=== PATIENT | male | born 1990 | race African-American/Black ===

== ENCOUNTER 2016-05-01 10:30 | Emergency (ER) | payer MEDICAID ==
[~2016-05-01] VITALS: Ht 170.2 cm; Wt 63.5 kg
[~2016-05-01 10:30] MED LIST: LEVE500T22 PO
[2016-05-01 11:24] LABS: Albumin 4.3 g/dL (3.4-5.0); Alkaline Phosphatase 57 U/L (45-117); Anion Gap 7 (5-15); Aspartate Aminotransferase 13 U/L (15-37); BUN/Creatinine Ratio 6.7; Basophils # (auto) 0 uL; Basophils % (auto) 0.8 % (0.0-2.0); Bilirubin, Total 0.4 mg/dL (0.2-1.0); Blood Urea Nitrogen 6 mg/dL (7-18); Calcium 8.8 mg/dL (8.5-10.1); Carbon Dioxide 28 mmol/L (21-32); Chloride 106 mmol/L (98-107); Eosinophils # (auto) 0 uL; Eosinophils % (auto) 0.8 % (0.0-7.0); GFR African American 134 mL/min; GFR Non-African American 111 mL/min; Glucose 99 mg/dL (74-106); Hematocrit 51.5 % (41.0-53.0); Hemoglobin 16.2 g/dL (13.5-17.5); Lymphocytes # (auto) 1.8 uL; Magnesium 2.1 mg/dL (1.6-2.6); Mean Corpuscular Hgb Conc. 31.5 g/dL (32.0-36.0); Mean Corpuscular Volume 94.9 fL (80.0-100.0); Mean Platelet Volume 8.5 fL (7.4-10.4); Monocytes # (auto) 0.3 uL; Neutrophils # (auto) 3.4 uL; Neutrophils % (auto) 61.4 % (37.0-80.0); Platelet Count (auto) 195 10^3/uL (140-450); Potassium 4.4 mmol/L (3.5-5.1); Red Cell Distribution Width 12.5 % (11.6-16.0); Sodium 141 mmol/L (136-145); Total Protein 7.4 g/dL (6.4-8.2); White Blood Cell 5.6 10^3/uL (4.4-10.8)
[2016-05-01 12:35] VITALS: BP 135/85
[2016-05-01] MEDS ORDERED: HYDROmorphone HCL 2 MG/ML VL IM ONE (13:00)
[2016-05-01] MEDS ORDERED: ONDANSETRON HCL 4 MG/2 ML VIAL IM ONE (13:00)
== END 2016-05-01 14:04 | disposition home or self-care (01) ==
LOC: ER 10:34
DX: R07.89 Other chest pain (principal); F41.9 Anxiety disorder, unspecified; J45.909 Unspecified asthma, uncomplicated; F17.210 Nicotine dependence, cigarettes, uncomplicated; F12.10 Cannabis abuse, uncomplicated; I25.10 Atherosclerotic heart disease of native coronary artery without angina pectoris; Z96.89 Presence of other specified functional implants; Z88.6 Allergy status to analgesic agent; Z91.041 Radiographic dye allergy status; Z91.013 Allergy to seafood; Z91.09 Other allergy status, other than to drugs and biological substances
CPT/HCPCS: 36415; 80053; 83735; 84484; 85025; 93005; 96372; 99285; J1170; J2405

== ENCOUNTER 2016-10-02 20:21 | Emergency (ER) | payer MEDICAID ==
[~2016-10-02] VITALS: Ht 170.2 cm; Wt 67.2 kg
[2016-10-02 21:23] LABS: Basophils # (auto) 0 uL; Basophils % (auto) 0.7 % (0.0-2.0); CONDITION Y; Eosinophils # (auto) 0.1 uL; Eosinophils % (auto) 2.1 % (0.0-7.0); Hematocrit 48.2 % (41.0-53.0); Hemoglobin 16.5 g/dL (13.5-17.5); Lymphocytes # (auto) 1.5 uL; Lymphocytes % (auto) 35.2 % (10.0-50.0); Mean Corpuscular Hemoglobin 31.9 pg (28.0-32.0); Mean Corpuscular Hgb Conc. 34.2 g/dL (32.0-36.0); Mean Corpuscular Volume 93.3 fL (80.0-100.0); Mean Platelet Volume 8.1 fL (7.4-10.4); Monocytes # (auto) 0.4 uL; Monocytes % (auto) 10.1 % (0.0-12.0); Neutrophils # (auto) 2.2 uL; Neutrophils % (auto) 51.9 % (37.0-80.0); Platelet Count (auto) 153 10^3/uL (140-450); Red Cell Distribution Width 12.5 % (11.6-16.0); White Blood Cell 4.3 10^3/uL (4.4-10.8)
[2016-10-02 21:43] LABS: Albumin 4.1 g/dL (3.4-5.0); Anion Gap 9 (5-15); Aspartate Aminotransferase 16 U/L (15-37); BUN/Creatinine Ratio 17.1; Blood Urea Nitrogen 14 mg/dL (7-18); Calcium 8.5 mg/dL (8.5-10.1); Carbon Dioxide 23 mmol/L (21-32); Chloride 110 mmol/L (98-107); GFR African American 146 mL/min; GFR Non-African American 121 mL/min; Glucose 84 mg/dL (74-106); Sodium 142 mmol/L (136-145)
[2016-10-02 21:54] LABS: Alkaline Phosphatase 72 U/L (45-117); Bilirubin, Total 0.5 mg/dL (0.2-1.0); Total Protein 7.6 g/dL (6.4-8.2)
[2016-10-02 21:56] LABS: Urine Bilirubin Negative (Negative); Urine Blood Negative /uL (Negative); Urine Color Yellow (Yellow); Urine Glucose Normal (Normal); Urine Ketone Negative (Negative); Urine Nitrite Negative (Negative); Urine RBC <1 /hpf (0 - 3); Urine Urobilinogen Normal (Negative); Urine pH 6.5 (5.0-8.0)
[2016-10-03] MEDS ORDERED: ONDANSETRON HCL 4 MG/2 ML VIAL IV ONE (00:30)
[2016-10-03] MEDS ORDERED: NALBUPHINE HCL 10 MG/1ml INJECTION IV ONE (00:30)
[2016-10-03] MEDS ORDERED: SODIUM CHLORIDE 0.9% 1,000 ML IV ONE (00:30)
[2016-10-03 00:33] VITALS: BP 160/94
[2016-10-03] MEDS ORDERED: diphenhdrAMINE HCL 50 MG/1 ML VL ONE (00:37)
[2016-10-03] MEDS ORDERED: diphenhdrAMINE HCL 50 MG/1 ML VL IV ONE (00:45)
== END 2016-10-03 03:05 | disposition home or self-care (01) ==
LOC: ER 20:23
DX: K52.9 Noninfective gastroenteritis and colitis, unspecified (principal); K59.00 Constipation, unspecified; J45.909 Unspecified asthma, uncomplicated; I25.10 Atherosclerotic heart disease of native coronary artery without angina pectoris; Z95.0 Presence of cardiac pacemaker; Z91.013 Allergy to seafood; Z91.041 Radiographic dye allergy status; Z88.8 Allergy status to other drugs, medicaments and biological substances; F17.210 Nicotine dependence, cigarettes, uncomplicated; F12.10 Cannabis abuse, uncomplicated; Z59.0 Homelessness
CPT/HCPCS: 36415; 71020; 74176; 80053; 80307; 81001; 83690; 83735; 84484; 85025; 93005; 94761; 96361; 96374; 96375; 99285; J1200; J2300; J2405

== ENCOUNTER 2017-01-19 10:11 | Emergency (ER) | payer MEDICAID, OTHER ==
[~2017-01-19] VITALS: Ht 167.6 cm; Wt 63.5 kg
[2017-01-19 11:43] LABS: Basophils # (auto) 0.1 uL; Basophils % (auto) 1.3 % (0.0-2.0); Eosinophils # (auto) 0.1 uL; Eosinophils % (auto) 1.7 % (0.0-7.0); Hematocrit 41.1 % (41.0-53.0); Hemoglobin 14.1 g/dL (13.5-17.5); Lymphocytes # (auto) 2.3 uL; Lymphocytes % (auto) 41.5 % (10.0-50.0); Mean Corpuscular Hemoglobin 31.9 pg (28.0-32.0); Mean Corpuscular Hgb Conc. 34.4 g/dL (32.0-36.0); Mean Corpuscular Volume 92.8 fL (80.0-100.0); Monocytes # (auto) 0.3 uL; Monocytes % (auto) 4.7 % (0.0-12.0); Neutrophils # (auto) 2.9 uL; Neutrophils % (auto) 50.8 % (37.0-80.0); Nucleated Red Blood Cells % 0.4 %; Platelet Count (auto) 169 10^3/uL (140-450); Red Blood Cells 4.43 10^6/uL (4.5-5.90); Red Cell Distribution Width 12.6 % (11.8-14.3); White Blood Cell 5.6 10^3/uL (4.4-10.8)
[2017-01-19 11:58] LABS: Alanine Aminotransferase 34 U/L (16-61); Albumin 3.9 g/dL (3.4-5.0); Alkaline Phosphatase 57 U/L (45-117); Amylase 76 U/L (25-115); Anion Gap 7 (5-15); Aspartate Aminotransferase 17 U/L (15-37); BUN/Creatinine Ratio 13.9; Bilirubin, Total 0.6 mg/dL (0.2-1.0); Blood Urea Nitrogen 10 mg/dL (7-18); Calcium 8.3 mg/dL (8.5-10.1); Carbon Dioxide 25 mmol/L (21-32); Chloride 111 mmol/L (98-107); GFR African American 170 mL/min; GFR Non-African American 140 mL/min; Glucose 84 mg/dL (74-106); Magnesium 2.2 mg/dL (1.6-2.6); Potassium 3.5 mmol/L (3.5-5.1); Sodium 143 mmol/L (136-145); Total Protein 6.8 g/dL (6.4-8.2)
[2017-01-19] MEDS ORDERED: SODIUM CHLORIDE 0.9% 500 ML IVB ONE (13:25)
[2017-01-19] MEDS ORDERED: ONDANSETRON HCL 4 MG/2 ML VIAL IV ONE (14:00)
[2017-01-19] MEDS ORDERED: HYDROmorphone HCL 2 MG/ML VL IV ONE (14:00)
[2017-01-19 14:14] VITALS: BP 114/52
== END 2017-01-19 14:58 | disposition home or self-care (01) ==
LOC: ER 10:11
DX: K92.1 Melena (principal); R11.2 Nausea with vomiting, unspecified; F17.210 Nicotine dependence, cigarettes, uncomplicated; J45.909 Unspecified asthma, uncomplicated; I25.10 Atherosclerotic heart disease of native coronary artery without angina pectoris; Z59.0 Homelessness; Z86.73 Personal history of transient ischemic attack (TIA), and cerebral infarction without residual deficits; Z87.11 Personal history of peptic ulcer disease
CPT/HCPCS: 36415; 74176; 80053; 82150; 83690; 83735; 84484; 85025; 94761; 96361; 96374; 96375; 99285; J1170; J2405; J7040

== ENCOUNTER 2017-01-22 17:34 | Emergency (ER) | payer OTHER ==
[~2017-01-22] VITALS: Ht 167.6 cm; Wt 59.0 kg
[2017-01-22 17:54] VITALS: BP 100/70
== END 2017-01-23 05:00 | disposition left against medical advice (07) ==
LOC: ER 17:44
DX: R11.2 Nausea with vomiting, unspecified (principal); Z53.21 Procedure and treatment not carried out due to patient leaving prior to being seen by health care provider

== ENCOUNTER 2017-02-07 00:17 | Inpatient (IN) | payer OTHER ==
[~2017-02-07] VITALS: Ht 167.6 cm; Wt 58.5 kg
[2017-02-07 00:54] LABS: Basophils # (auto) 0.1 uL; Basophils % (auto) 1.3 % (0.0-2.0); Eosinophils # (auto) 0.2 uL; Eosinophils % (auto) 2.3 % (0.0-7.0); Lymphocytes # (auto) 2.8 uL; Lymphocytes % (auto) 28.8 % (10.0-50.0); Mean Corpuscular Hemoglobin 31.3 pg (28.0-32.0); Mean Corpuscular Hgb Conc. 33.3 g/dL (32.0-36.0); Monocytes # (auto) 0.4 uL; Monocytes % (auto) 3.9 % (0.0-12.0); Neutrophils # (auto) 6.2 uL; Neutrophils % (auto) 63.7 % (37.0-80.0); Nucleated Red Blood Cells % 0.1 %; Platelet Count (auto) 162 10^3/uL (140-450); Red Cell Distribution Width 13.1 % (11.8-14.3); White Blood Cell 9.7 10^3/uL (4.4-10.8)
[2017-02-07 01:09] LABS: INR 1.07 (0.9-1.15); Partial Thromboplastin Time 26.4 sec (22.64-33.71); Prothrombin Time 11.7 sec (9.37-12.3)
[2017-02-07 01:14] LABS: Albumin 3.9 g/dL (3.4-5.0); Anion Gap 8 (5-15); Aspartate Aminotransferase 18 U/L (15-37); BUN/Creatinine Ratio 17.2; Blood Urea Nitrogen 20 mg/dL (7-18); Calcium 8.7 mg/dL (8.5-10.1); Carbon Dioxide 23 mmol/L (21-32); Chloride 109 mmol/L (98-107); GFR African American 98 mL/min; GFR Non-African American 81 mL/min; Glucose 92 mg/dL (74-106); Magnesium 2.2 mg/dL (1.6-2.6); Potassium 3.9 mmol/L (3.5-5.1); Sodium 140 mmol/L (136-145)
[2017-02-07 01:18] LABS: Alkaline Phosphatase 70 U/L (45-117); Bilirubin, Total 0.2 mg/dL (0.2-1.0); Total Protein 7.6 g/dL (6.4-8.2)
[2017-02-07] MEDS ORDERED: MORPHINE SULF INJ 2 MG/ML SYRINGE 1ML IV ONE (06:45)
[2017-02-07] MEDS ORDERED: SODIUM CHLORIDE 0.9% 1,000 ML IV ONE (06:45)
[2017-02-07] MEDS ORDERED: PROMETHAZINE HCL 25 MG/ML 1ML IV ONE (06:45)
[2017-02-07] MEDS ORDERED: ASPirin 81 mg TAB PO ONE (06:45)
[2017-02-07] MEDS ORDERED: ONDANSETRON HCL 4 MG/2 ML VIAL IV ONE (06:45)
[2017-02-07] MEDS ORDERED: ONDANSETRON HCL 4 MG/2 ML VIAL IV PRN (08:00)
[2017-02-07] MEDS ORDERED: ACETAMINOPHEN 325 MG TAB PO PRN (08:00)
[2017-02-07] MEDS ORDERED: HYDROcodone-ACET 5/325MG TAB PO PRN (08:00)
[2017-02-07] MEDS ORDERED: TEMAZEPAM 15 MG CAP PO PRN (08:00)
[2017-02-07] MEDS ORDERED: NITROGLYCERIN 0.4 MG SL TAB SL PRN (08:00)
[2017-02-07] MEDS ORDERED: MORPHINE SULF INJ 2 MG/ML SYRINGE 1ML IV PRN (08:00)
[2017-02-07 09:51] VITALS: BP 105/48
[2017-02-07] MEDS ORDERED: FAMOTIDINE 20 MG TAB PO SCH (10:00)
[2017-02-07] MEDS ORDERED: ENOXAPARIN SOD 40 MG/0.4 ML SYRINGE SC SCH (10:00)
[2017-02-07] MEDS ORDERED: LEVETIRACETAM 500 MG TAB PO SCH (10:00)
[2017-02-07] MEDS ORDERED: ASPirin 81 mg TAB PO SCH (10:00)
[2017-02-07 12:18] VITALS: BP 105/48
[2017-02-07 13:52] VITALS: BP 115/50
[2017-02-07 14:07] VITALS: BP 115/50
[2017-02-07 14:12] VITALS: BP 115/50
[2017-02-07] MEDS ORDERED: ATORVASTATIN 20 MG TAB PO SCH (22:00)
== END 2017-02-07 14:07 | disposition home or self-care (01) | DRG 198 ==
LOC: ER 00:20 → TELE 00:21 → TELE-WESTW 09:14
PROVIDERS: ADMIT Nurse Practitioner; ATTEND Nurse Practitioner
DX: R07.89 Other chest pain (principal); I25.10 Atherosclerotic heart disease of native coronary artery without angina pectoris; F11.20 Opioid dependence, uncomplicated; R56.9 Unspecified convulsions; E78.00 Pure hypercholesterolemia, unspecified; F12.90 Cannabis use, unspecified, uncomplicated; F17.210 Nicotine dependence, cigarettes, uncomplicated; F20.9 Schizophrenia, unspecified; J44.9 Chronic obstructive pulmonary disease, unspecified; F41.9 Anxiety disorder, unspecified; F32.9 Major depressive disorder, single episode, unspecified; I69.354 Hemiplegia and hemiparesis following cerebral infarction affecting left non-dominant side; Z95.0 Presence of cardiac pacemaker; Z59.0 Homelessness; Z82.3 Family history of stroke; Z82.49 Family history of ischemic heart disease and other diseases of the circulatory system; Z87.11 Personal history of peptic ulcer disease; Z80.0 Family history of malignant neoplasm of digestive organs; Z88.8 Allergy status to other drugs, medicaments and biological substances
CPT/HCPCS: 36415; 71010; 80053; 83735; 84484; 85025; 85610; 85730; 93306; 96361; 96374; 96375; 99291; J2405

== ENCOUNTER 2017-04-01 14:56 | Emergency (ER) | payer OTHER ==
[~2017-04-01] VITALS: Ht 170.2 cm; Wt 65.3 kg
[2017-04-01 15:57] LABS: Urine Bacteria NONE SEEN /hpf (None Seen); Urine Blood Negative /uL (Negative); Urine Mucus FEW (None Seen); Urine Specific Gravity 1.022 (1.001-1.035); Urine WBC <1 /hpf (0 - 3)
[2017-04-01 16:19] LABS: Alcohol, Urine < 3.0 mg/dL (0-5); Amphetamine Screen, Urine NEGATIVE (NEGATIVE); Barbiturate Scree,Urine NEGATIVE (NEGATIVE); Benzodiazephine Screen, Urine NEGATIVE (NEGATIVE); Cannabinoid Screen, Urine POSITIVE (NEGATIVE); Cocaine Screen, Urine NEGATIVE (NEGATIVE); Opiate Scree,Urine NEGATIVE (NEGATIVE); Phencyclidine Screen, Urine NEGATIVE (NEGATIVE)
[2017-04-01 16:29] LABS: Basophils # (auto) 0.1 uL; Basophils % (auto) 1.2 % (0.0-2.0); Eosinophils # (auto) 0.2 uL; Eosinophils % (auto) 3.7 % (0.0-7.0); Hematocrit 45.9 % (41.0-53.0); Hemoglobin 15.4 g/dL (13.5-17.5); Lymphocytes # (auto) 1.8 uL; Lymphocytes % (auto) 37.8 % (10.0-50.0); Mean Corpuscular Hemoglobin 31.6 pg (28.0-32.0); Mean Corpuscular Hgb Conc. 33.5 g/dL (32.0-36.0); Mean Corpuscular Volume 94.3 fL (80.0-100.0); Monocytes # (auto) 0.3 uL; Monocytes % (auto) 5.6 % (0.0-12.0); Neutrophils # (auto) 2.4 uL; Neutrophils % (auto) 51.7 % (37.0-80.0); Platelet Count (auto) 184 10^3/uL (140-450); Red Blood Cells 4.87 10^6/uL (4.5-5.90); White Blood Cell 4.7 10^3/uL (4.4-10.8)
[2017-04-01 16:35] LABS: Alanine Aminotransferase 20 U/L (16-61); Albumin 3.9 g/dL (3.4-5.0); Anion Gap 7 (5-15); Aspartate Aminotransferase 18 U/L (15-37); BUN/Creatinine Ratio 18.4; Blood Urea Nitrogen 16 mg/dL (7-18); Calcium 8.3 mg/dL (8.5-10.1); Carbon Dioxide 25 mmol/L (21-32); Chloride 105 mmol/L (98-107); GFR African American 136 mL/min; GFR Non-African American 113 mL/min; Glucose 132 mg/dL (74-106); Sodium 137 mmol/L (136-145)
[2017-04-01 16:40] LABS: Alkaline Phosphatase 65 U/L (45-117); Bilirubin, Total 0.3 mg/dL (0.2-1.0); Total Protein 7.1 g/dL (6.4-8.2)
[2017-04-02 00:15] VITALS: BP 122/81
== END 2017-04-02 06:16 | disposition home or self-care (01) ==
LOC: ER 14:56
DX: F12.10 Cannabis abuse, uncomplicated (principal); J45.909 Unspecified asthma, uncomplicated; I25.10 Atherosclerotic heart disease of native coronary artery without angina pectoris; F17.210 Nicotine dependence, cigarettes, uncomplicated; Z88.6 Allergy status to analgesic agent; Z91.041 Radiographic dye allergy status
CPT/HCPCS: 36415; 71046; 80053; 80307; 81001; 84484; 85025; 93005

== ENCOUNTER 2017-05-30 21:38 | Emergency (ER) | payer MEDICAID, OTHER ==
[~2017-05-30] VITALS: Ht 170.2 cm; Wt 68.0 kg
[2017-05-30 22:08] LABS: Basophils # (auto) 0.1 uL; Basophils % (auto) 0.7 % (0.0-2.0); Eosinophils # (auto) 0.2 uL; Hematocrit 48.5 % (41.0-53.0); Hemoglobin 16.2 g/dL (13.5-17.5); Lymphocytes # (auto) 3.4 uL; Lymphocytes % (auto) 35.3 % (10.0-50.0); Mean Corpuscular Hemoglobin 31.7 pg (28.0-32.0); Mean Corpuscular Hgb Conc. 33.5 g/dL (32.0-36.0); Mean Corpuscular Volume 94.6 fL (80.0-100.0); Monocytes # (auto) 0.6 uL; Monocytes % (auto) 6.4 % (0.0-12.0); Neutrophils # (auto) 5.3 uL; Neutrophils % (auto) 55.6 % (37.0-80.0); Nucleated Red Blood Cells % 0.2 %; Platelet Count (auto) 190 10^3/uL (140-450); Red Blood Cells 5.13 10^6/uL (4.5-5.90); Red Cell Distribution Width 12.7 % (11.8-14.3); White Blood Cell 9.6 10^3/uL (4.4-10.8)
[2017-05-30 22:22] LABS: BUN/Creatinine Ratio 13.3; Calcium 8.7 mg/dL (8.5-10.1); Potassium 4.1 mmol/L (3.5-5.1)
[2017-05-30 22:25] LABS: Bilirubin, Total 0.4 mg/dL (0.2-1.0); INR 1.05 (0.9-1.15); Partial Thromboplastin Time 27.9 sec (22.64-33.71); Prothrombin Time 11.5 sec (9.37-12.3); Total Protein 7.3 g/dL (6.4-8.2)
[2017-05-31 05:50] VITALS: BP 122/43
[2017-05-31] MEDS ORDERED: SODIUM CHLORIDE 0.9% 1,000 ML IV ONE (07:36)
[2017-05-31] MEDS ORDERED: ONDANSETRON HCL 4 MG/2 ML VIAL IV ONE (07:45)
[2017-05-31] MEDS ORDERED: NALBUPHINE HCL 10 MG/1ml INJECTION IV ONE (08:00)
== END 2017-05-31 10:12 | disposition home or self-care (01) ==
LOC: ER 21:38
DX: K29.70 Gastritis, unspecified, without bleeding (principal); F17.210 Nicotine dependence, cigarettes, uncomplicated; Z88.6 Allergy status to analgesic agent; Z91.041 Radiographic dye allergy status; Z91.013 Allergy to seafood; Z91.09 Other allergy status, other than to drugs and biological substances; Z98.890 Other specified postprocedural states
CPT/HCPCS: 36415; 74176; 80053; 82150; 83690; 85025; 85610; 85730; 96361; 96374; 96375; 99285; J2300; J2405; J7030

== ENCOUNTER 2017-07-04 20:34 | Emergency (ER) | payer OTHER, MEDICAID ==
[~2017-07-04] VITALS: Ht 170.2 cm; Wt 59.0 kg
[2017-07-04 20:54] VITALS: BP 112/84
[2017-07-04 22:04] LABS: Basophils # (auto) 0.1 uL; Basophils % (auto) 1.9 % (0.0-2.0); Eosinophils # (auto) 0.2 uL; Eosinophils % (auto) 2.8 % (0.0-7.0); Hematocrit 43.7 % (41.0-53.0); Hemoglobin 14.5 g/dL (13.5-17.5); Lymphocytes # (auto) 3.3 uL; Lymphocytes % (auto) 49.7 % (10.0-50.0); Mean Corpuscular Hgb Conc. 33.1 g/dL (32.0-36.0); Mean Corpuscular Volume 93.5 fL (80.0-100.0); Monocytes # (auto) 0.3 uL; Monocytes % (auto) 4.9 % (0.0-12.0); Neutrophils # (auto) 2.7 uL; Neutrophils % (auto) 40.7 % (37.0-80.0); Nucleated Red Blood Cells % 0.1 %; Platelet Count (auto) 165 10^3/uL (140-450); Red Blood Cells 4.68 10^6/uL (4.5-5.90); Red Cell Distribution Width 13.3 % (11.8-14.3); White Blood Cell 6.7 10^3/uL (4.4-10.8)
[2017-07-04 22:21] LABS: Alanine Aminotransferase 32 U/L (16-61); Albumin 3.7 g/dL (3.4-5.0); Amylase 105 U/L (25-115); Anion Gap 9 (5-15); Aspartate Aminotransferase 27 U/L (15-37); BUN/Creatinine Ratio 23.8; Blood Urea Nitrogen 19 mg/dL (7-18); Calcium 8.3 mg/dL (8.5-10.1); Carbon Dioxide 25 mmol/L (21-32); Chloride 108 mmol/L (98-107); GFR African American 149 mL/min; GFR Non-African American 123 mL/min; Glucose 86 mg/dL (74-106); Lipase 436 U/L (73-393); Sodium 142 mmol/L (136-145)
[2017-07-04 22:27] LABS: INR 1.05 (0.9-1.15); Partial Thromboplastin Time 27.3 sec (22.64-33.71); Prothrombin Time 11.4 sec (9.37-12.3)
[2017-07-04 22:33] LABS: Alkaline Phosphatase 91 U/L (45-117); Bilirubin, Total 0.2 mg/dL (0.2-1.0); Total Protein 6.7 g/dL (6.4-8.2)
== END 2017-07-04 23:18 | disposition left against medical advice (07) ==
LOC: ER 20:34
DX: R10.30 Lower abdominal pain, unspecified (principal); R11.2 Nausea with vomiting, unspecified; Z53.21 Procedure and treatment not carried out due to patient leaving prior to being seen by health care provider
CPT/HCPCS: 36415; 74176; 80053; 82150; 83690; 84484; 85025; 85610; 85730

== ENCOUNTER 2017-10-28 11:29 | Inpatient (IN) | payer MEDICAID, OTHER ==
[~2017-10-28] VITALS: Ht 170.2 cm; Wt 73.0 kg
[2017-10-28] MEDS ORDERED: ONDANSETRON HCL 4 MG/2 ML VIAL IV ONE (11:45)
[2017-10-28] MEDS ORDERED: MORPHINE SULF INJ 2 MG/ML SYRINGE 1ML IV ONE (11:45)
[2017-10-28] MEDS ORDERED: ASPirin 81 mg TAB PO ONE (11:45)
[2017-10-28 12:30] LABS: Basophils # (auto) 0.1 uL; Basophils % (auto) 0.6 % (0.0-2.0); Eosinophils # (auto) 0 uL; Eosinophils % (auto) 0.2 % (0.0-7.0); Hematocrit 46.4 % (41.0-53.0); Hemoglobin 15.4 g/dL (13.5-17.5); Lymphocytes # (auto) 2.4 uL; Lymphocytes % (auto) 26.3 % (10.0-50.0); Mean Corpuscular Hemoglobin 31.7 pg (28.0-32.0); Mean Corpuscular Hgb Conc. 33.1 g/dL (32.0-36.0); Mean Corpuscular Volume 95.6 fL (80.0-100.0); Monocytes # (auto) 0.9 uL; Monocytes % (auto) 10.2 % (0.0-12.0); Neutrophils # (auto) 5.8 uL; Neutrophils % (auto) 62.7 % (37.0-80.0); Platelet Count (auto) 116 10^3/uL (140-450); Red Blood Cells 4.86 10^6/uL (4.5-5.90); Red Cell Distribution Width 12.7 % (11.8-14.3); White Blood Cell 9.2 10^3/uL (4.4-10.8)
[2017-10-28 12:43] LABS: INR 1.05 (0.9-1.15); Partial Thromboplastin Time 27.9 sec (23.78-33.04); Prothrombin Time 11.2 sec (9.27-12.13)
[2017-10-28 13:27] LABS: Albumin 3.9 g/dL (3.4-5.0); Anion Gap 11 (5-15); BUN/Creatinine Ratio 9.1; Blood Urea Nitrogen 7 mg/dL (7-18); Calcium 8.8 mg/dL (8.5-10.1); Carbon Dioxide 25 mmol/L (21-32); Chloride 103 mmol/L (98-107); GFR African American 156 mL/min; GFR Non-African American 129 mL/min; Glucose 85 mg/dL (74-106); Magnesium 1.9 mg/dL (1.6-2.6); Potassium 3.9 mmol/L (3.5-5.1); Sodium 139 mmol/L (136-145)
[2017-10-28 13:32] LABS: Alanine Aminotransferase 23 U/L (16-61); Alkaline Phosphatase 64 U/L (45-117); Aspartate Aminotransferase 24 U/L (15-37); Bilirubin, Total 0.8 mg/dL (0.2-1.0); Total Protein 7.7 g/dL (6.4-8.2)
[2017-10-28] MEDS ORDERED: ACETAMINOPHEN 500 MG TAB PO PRN (14:00)
[2017-10-28] MEDS ORDERED: TEMAZEPAM 15 MG CAP PO PRN (14:00)
[2017-10-28] MEDS ORDERED: LACTULOSE 20Gm/30ML SOLN PO PRN (14:00)
[2017-10-28] MEDS ORDERED: PROMETHAZINE HCL 25 MG/ML 1ML IV PRN (14:00)
[2017-10-28] MEDS: SODIUM CHLORIDE 0.9% 1,000 ML IV SCH (15:21)
[2017-10-28] MEDS: LORazepam 0.5 MG TAB PO PRN (17:38)
[2017-10-28] MEDS: traMADol HCL 50 MG TAB PO PRN (19:36)
[2017-10-28] MEDS: LEVETIRACETAM 500 MG TAB PO SCH (20:48)
[2017-10-28 20:54] LABS: Urine Bacteria FEW /hpf (None Seen); Urine Blood 3+ /uL (Negative); Urine Mucus FEW (None Seen); Urine Specific Gravity 1.026 (1.001-1.035); Urine WBC 3 /hpf (0 - 3)
[2017-10-28 21:11] LABS: Alcohol, Urine < 3.0 mg/dL (0-5); Amphetamine Screen, Urine NEGATIVE (NEGATIVE); Barbiturate Scree,Urine NEGATIVE (NEGATIVE); Benzodiazephine Screen, Urine NEGATIVE (NEGATIVE); Cannabinoid Screen, Urine POSITIVE (NEGATIVE); Cocaine Screen, Urine NEGATIVE (NEGATIVE); Opiate Scree,Urine POSITIVE (NEGATIVE); Phencyclidine Screen, Urine NEGATIVE (NEGATIVE)
[2017-10-28] MEDS: METOPROLOL TARTRATE 25 MG TAB PO SCH ×2 (22:00→22:04)
[2017-10-28] MEDS ORDERED: ATORVASTATIN 20 MG TAB PO SCH (22:00)
[2017-10-28 22:32] VITALS: BP 123/65
[2017-10-28 22:44] VITALS: BP 123/65
[2017-10-29] MEDS ORDERED: DIVA500T53 PO (04:15)
[2017-10-29 05:00] VITALS: BP 92/48
[2017-10-29] MEDS: SODIUM CHLORIDE 0.9% 1,000 ML IV SCH (06:31)
[2017-10-29] MEDS: traMADol HCL 50 MG TAB PO PRN (06:54)
[2017-10-29 08:40] VITALS: BP 121/63
[2017-10-29 08:57] LABS: Cholesterol 113 mg/dL (< 200); HDL Cholesterol 52 mg/dL (40-59); LDL Cholesterol 55 mg/dL (< 100); Triglycerides 66 mg/dL (< 150)
[2017-10-29] MEDS ORDERED: PANTOPRAZOLE 40 MG TAB PO SCH (10:00)
[2017-10-29] MEDS ORDERED: NITROGLYCERIN 0.2MG/HR TOPICAL PATCH TD SCH (10:00)
[2017-10-29] MEDS: METOPROLOL TARTRATE 25 MG TAB PO SCH (10:00)
[2017-10-29] MEDS ORDERED: ENOXAPARIN SOD 40 MG/0.4 ML SYRINGE SC SCH (10:00)
[2017-10-29] MEDS ORDERED: ASPirin 81 mg TAB PO SCH (10:00)
[2017-10-29] MEDS: LORazepam 0.5 MG TAB PO PRN (10:25)
[2017-10-29] MEDS: LEVETIRACETAM 500 MG TAB PO SCH (10:26)
[2017-10-29] MEDS ORDERED: NICOTINE 21MG/24 HR TOPICAL PATCH TD ONE (11:00)
[2017-10-29 11:27] VITALS: BP 121/63
[2017-10-30] MEDS ORDERED: NICOTINE 21MG/24 HR TOPICAL PATCH TD SCH (10:00)
== END 2017-10-29 19:14 | disposition home or self-care (01) | DRG 198 ==
LOC: ER 11:29 → TELE 11:30 → TELE-CENTR 22:30
PROVIDERS: ADMIT Internal Medicine; ATTEND Internal Medicine
DX: I25.10 Atherosclerotic heart disease of native coronary artery without angina pectoris (principal); F11.20 Opioid dependence, uncomplicated; E78.5 Hyperlipidemia, unspecified; F17.210 Nicotine dependence, cigarettes, uncomplicated; F20.9 Schizophrenia, unspecified; G40.909 Epilepsy, unspecified, not intractable, without status epilepticus; F32.9 Major depressive disorder, single episode, unspecified; F41.9 Anxiety disorder, unspecified; Z82.3 Family history of stroke; Z82.49 Family history of ischemic heart disease and other diseases of the circulatory system; Z80.0 Family history of malignant neoplasm of digestive organs; Z86.73 Personal history of transient ischemic attack (TIA), and cerebral infarction without residual deficits; Z87.11 Personal history of peptic ulcer disease; Z91.041 Radiographic dye allergy status; Z88.5 Allergy status to narcotic agent; Z91.018 Allergy to other foods; Z91.013 Allergy to seafood; Z95.0 Presence of cardiac pacemaker
CPT/HCPCS: 36415; 71045; 80053; 80061; 80307; 81001; 81241; 82550; 83735; 84443; 84484; 85025; 85302; 85305; 85306; 85379; 85610; 85613; 85652; 85670; 85705; 85730; 85732; 86141; 87081; 93005; 94761; 96374; 96375; J2405

== ENCOUNTER 2018-01-13 19:30 | Emergency (ER) | payer OTHER ==
[~2018-01-13] VITALS: Ht 350.5 cm; Wt 65.8 kg
[~2018-01-13 19:30] MED LIST changes: +DIVA500T53 PO
[2018-01-13 20:06] LABS: Basophils # (auto) 0 uL; Basophils % (auto) 0.8 % (0.0-2.0); Eosinophils # (auto) 0.4 uL; Eosinophils % (auto) 7.7 % (0.0-7.0); Hemoglobin 14.7 g/dL (13.5-17.5); Lymphocytes # (auto) 2.5 uL; Lymphocytes % (auto) 44.7 % (10.0-50.0); Mean Corpuscular Hemoglobin 32.4 pg (28.0-32.0); Mean Corpuscular Hgb Conc. 33.5 g/dL (32.0-36.0); Mean Corpuscular Volume 96.9 fL (80.0-100.0); Monocytes # (auto) 0.4 uL; Monocytes % (auto) 8.1 % (0.0-12.0); Neutrophils # (auto) 2.1 uL; Neutrophils % (auto) 38.7 % (37.0-80.0); Nucleated Red Blood Cells % 0.1 %; Platelet Count (auto) 121 10^3/uL (140-450); Red Blood Cells 4.54 10^6/uL (4.5-5.90); Red Cell Distribution Width 13.9 % (11.8-14.3); White Blood Cell 5.5 10^3/uL (4.4-10.8)
[2018-01-13 20:24] LABS: Alanine Aminotransferase 16 U/L (16-61); Albumin 3.6 g/dL (3.4-5.0); Anion Gap 8 (5-15); Aspartate Aminotransferase 15 U/L (15-37); BUN/Creatinine Ratio 10.3; Blood Urea Nitrogen 9 mg/dL (7-18); Calcium 8.3 mg/dL (8.5-10.1); Carbon Dioxide 23 mmol/L (21-32); Chloride 109 mmol/L (98-107); GFR African American 135 mL/min; GFR Non-African American 112 mL/min; Glucose 101 mg/dL (74-106); Potassium 3.9 mmol/L (3.5-5.1); Sodium 140 mmol/L (136-145)
[2018-01-13 20:29] LABS: Alkaline Phosphatase 71 U/L (45-117); Bilirubin, Total 0.2 mg/dL (0.2-1.0); Total Protein 6.9 g/dL (6.4-8.2)
[2018-01-13 22:21] VITALS: BP 137/79
[2018-01-13 22:39] LABS: INR 1.16 (0.9-1.15); Partial Thromboplastin Time 31.4 sec (23.78-33.04); Prothrombin Time 12.3 sec (9.27-12.13)
[2018-01-13] MEDS ORDERED: HYDROcodone-ACET 7.5/325MG TAB PO ONE (22:45)
== END 2018-01-14 00:01 | disposition home or self-care (01) ==
LOC: ER 19:30
DX: J20.9 Acute bronchitis, unspecified (principal); R07.9 Chest pain, unspecified; I25.10 Atherosclerotic heart disease of native coronary artery without angina pectoris; E78.5 Hyperlipidemia, unspecified; F17.210 Nicotine dependence, cigarettes, uncomplicated; F15.90 Other stimulant use, unspecified, uncomplicated; Z88.5 Allergy status to narcotic agent; Z88.8 Allergy status to other drugs, medicaments and biological substances; Z91.013 Allergy to seafood; Z86.73 Personal history of transient ischemic attack (TIA), and cerebral infarction without residual deficits; Z98.61 Coronary angioplasty status
CPT/HCPCS: 36415; 71045; 80053; 83880; 84484; 85025; 85610; 85730; 93005

== ENCOUNTER 2018-02-19 23:12 | Emergency (ER) | payer OTHER ==
[~2018-02-19] VITALS: Ht 170.2 cm; Wt 72.6 kg
[2018-02-20 00:26] LABS: Basophils # (auto) 0.2 uL; Basophils % (auto) 3.1 % (0.0-2.0); Eosinophils # (auto) 0.5 uL; Eosinophils % (auto) 9.1 % (0.0-7.0); Hematocrit 40.7 % (41.0-53.0); Hemoglobin 13.7 g/dL (13.5-17.5); Lymphocytes # (auto) 1.9 uL; Lymphocytes % (auto) 33.7 % (10.0-50.0); Mean Corpuscular Hemoglobin 32.6 pg (28.0-32.0); Mean Corpuscular Hgb Conc. 33.6 g/dL (32.0-36.0); Mean Corpuscular Volume 97.2 fL (80.0-100.0); Monocytes # (auto) 0.5 uL; Monocytes % (auto) 8.8 % (0.0-12.0); Neutrophils # (auto) 2.5 uL; Neutrophils % (auto) 45.3 % (37.0-80.0); Nucleated Red Blood Cells % 0.2 %; Platelet Count (auto) 153 10^3/uL (140-450); Red Blood Cells 4.19 10^6/uL (4.5-5.90); Red Cell Distribution Width 14.7 % (11.8-14.3); White Blood Cell 5.6 10^3/uL (4.4-10.8)
[2018-02-20 00:39] LABS: Albumin 3.3 g/dL (3.4-5.0); Anion Gap 8 (5-15); BUN/Creatinine Ratio 15.9; Blood Urea Nitrogen 14 mg/dL (7-18); Calcium 8.1 mg/dL (8.5-10.1); Carbon Dioxide 26 mmol/L (21-32); Chloride 108 mmol/L (98-107); GFR African American 134 mL/min; GFR Non-African American 110 mL/min; Glucose 86 mg/dL (74-106); Potassium 4.3 mmol/L (3.5-5.1); Sodium 142 mmol/L (136-145)
[2018-02-20 00:59] LABS: Alanine Aminotransferase 22 U/L (16-61); Alkaline Phosphatase 63 U/L (45-117); Aspartate Aminotransferase 25 U/L (15-37); Bilirubin, Total 0.2 mg/dL (0.2-1.0); Total Protein 6.3 g/dL (6.4-8.2)
[2018-02-20 01:15] VITALS: BP 142/53
[2018-02-20] MEDS ORDERED: ONDANSETRON HCL 4 MG/2 ML VIAL IV ONE (01:15)
[2018-02-20] MEDS ORDERED: NALBUPHINE HCL 10 MG/1ml INJECTION IV ONE (01:15)
[2018-02-20 01:42] LABS: Urine Bacteria NONE SEEN /hpf (None Seen); Urine Blood Negative /uL (Negative); Urine Mucus FEW (None Seen); Urine Specific Gravity 1.027 (1.001-1.035); Urine WBC <1 /hpf (0 - 3)
== END 2018-02-20 02:22 | disposition home or self-care (01) ==
LOC: ER 23:12
DX: R07.89 Other chest pain (principal); F41.9 Anxiety disorder, unspecified; F12.10 Cannabis abuse, uncomplicated; F17.210 Nicotine dependence, cigarettes, uncomplicated; I25.810 Atherosclerosis of coronary artery bypass graft(s) without angina pectoris; F32.9 Major depressive disorder, single episode, unspecified; E78.5 Hyperlipidemia, unspecified; F20.9 Schizophrenia, unspecified; Z86.73 Personal history of transient ischemic attack (TIA), and cerebral infarction without residual deficits; Z87.11 Personal history of peptic ulcer disease; Z95.0 Presence of cardiac pacemaker; Z88.6 Allergy status to analgesic agent; Z91.041 Radiographic dye allergy status; Z91.013 Allergy to seafood
CPT/HCPCS: 36415; 71045; 80053; 81001; 83880; 84484; 85025; 93005; 94761; 96374; 96375; 99284; J2300; J2405

== ENCOUNTER 2018-03-08 20:48 | Emergency (ER) | payer OTHER ==
[~2018-03-08] VITALS: Ht 170.2 cm; Wt 63.5 kg
[2018-03-08 21:21] VITALS: BP 131/86
== END 2018-03-09 06:24 | disposition left against medical advice (07) ==
LOC: ER 20:48
DX: R10.12 Left upper quadrant pain (principal); R10.32 Left lower quadrant pain; Z53.21 Procedure and treatment not carried out due to patient leaving prior to being seen by health care provider

== ENCOUNTER 2018-04-02 22:27 | Emergency (ER) | payer OTHER ==
[~2018-04-02] VITALS: Ht 170.2 cm; Wt 72.6 kg
[2018-04-03 00:49] LABS: Basophils # (auto) 0.1 uL; Basophils % (auto) 1.3 % (0.0-2.0); Eosinophils # (auto) 0.7 uL; Eosinophils % (auto) 14.4 % (0.0-7.0); Hematocrit 43.2 % (41.0-53.0); Hemoglobin 14.7 g/dL (13.5-17.5); Lymphocytes # (auto) 1.8 uL; Lymphocytes % (auto) 35.2 % (10.0-50.0); Mean Corpuscular Hemoglobin 32.4 pg (28.0-32.0); Mean Corpuscular Hgb Conc. 34.1 g/dL (32.0-36.0); Mean Corpuscular Volume 95.1 fL (80.0-100.0); Monocytes # (auto) 0.5 uL; Monocytes % (auto) 9.7 % (0.0-12.0); Neutrophils % (auto) 39.4 % (37.0-80.0); Nucleated Red Blood Cells % 0.1 %; Platelet Count (auto) 180 10^3/uL (140-450); Red Blood Cells 4.55 10^6/uL (4.5-5.90); Red Cell Distribution Width 12.8 % (11.8-14.3)
[2018-04-03 02:50] LABS: Blood Urea Nitrogen 10 mg/dL (7-18)
[2018-04-03 02:51] LABS: Bilirubin, Total 0.3 mg/dL (0.2-1.0)
[2018-04-03 02:52] LABS: Anion Gap 9 (5-15); Carbon Dioxide 24 mmol/L (21-32); Chloride 108 mmol/L (98-107); Glucose 100 mg/dL (74-106); Sodium 141 mmol/L (136-145)
[2018-04-03 02:53] LABS: Alanine Aminotransferase 16 U/L (16-61); Albumin 3.5 g/dL (3.4-5.0); Aspartate Aminotransferase 15 U/L (15-37); BUN/Creatinine Ratio 12.5; Calcium 8.7 mg/dL (8.5-10.1); GFR African American > 60 mL/min; GFR Non-African American > 60 mL/min; Total Protein 6.9 g/dL (6.4-8.2)
[2018-04-03 02:54] LABS: Alkaline Phosphatase 70 U/L (45-117)
[2018-04-03 06:08] LABS: Urine Amorphous Crystal MOD /hpf (None Seen); Urine Bacteria NONE SEEN /hpf (None Seen); Urine Blood Negative /uL (Negative); Urine Specific Gravity 1.016 (1.001-1.035); Urine WBC <1 /hpf (0 - 3)
[2018-04-03] MEDS ORDERED: PROMETHAZINE HCL 25 MG/ML 1ML IV PRN (07:15)
[2018-04-03 07:41] LABS: Magnesium 1.9 mg/dL (1.6-2.6)
[2018-04-03 08:14] VITALS: BP 151/111
[2018-04-03] MEDS ORDERED: MORPHINE SULFATE 10 MG/ML INJ 1ML SDV IV ONE (08:15)
== END 2018-04-03 09:13 | disposition home or self-care (01) ==
LOC: ER 22:27
DX: R10.84 Generalized abdominal pain (principal); F31.9 Bipolar disorder, unspecified; F12.10 Cannabis abuse, uncomplicated; E78.5 Hyperlipidemia, unspecified; F20.9 Schizophrenia, unspecified; F17.210 Nicotine dependence, cigarettes, uncomplicated; Z95.0 Presence of cardiac pacemaker; Z98.61 Coronary angioplasty status; Z87.11 Personal history of peptic ulcer disease; Z88.6 Allergy status to analgesic agent; Z91.041 Radiographic dye allergy status; Z91.013 Allergy to seafood
CPT/HCPCS: 36415; 71046; 74176; 80053; 81001; 83690; 83735; 85025; 96374; 96375; 99284; J2270; J2550

== ENCOUNTER 2018-06-20 18:00 | Emergency (ER) | payer OTHER ==
[~2018-06-20] VITALS: Ht 172.7 cm; Wt 77.1 kg
[2018-06-20 19:42] LABS: Urine WBC None Seen /hpf (0 - 3)
[2018-06-20 20:08] LABS: Hemoglobin 16.3 g/dL (13.5-17.5); Mean Corpuscular Hemoglobin 32.3 pg (28.0-32.0); Mean Corpuscular Hgb Conc. 33.3 g/dL (32.0-36.0); Mean Corpuscular Volume 96.9 fL (80.0-100.0); Platelet Count (auto) 145 10^3/uL (140-450); Red Blood Cells 5.06 10^6/uL (4.5-5.90); White Blood Cell 4.9 10^3/uL (4.4-10.8)
[2018-06-20 20:15] LABS: Band Neutrophils % (manual) 0; Basophils % (manual) 0 (0.0-2.0); Blast Cells 0; Metamyelocytes % 0; Myelocytes % 0; Promyelocytes % 0; Reactive Lymphocytes 0
[2018-06-20 20:16] LABS: Urine Bacteria NONE SEEN /hpf (None Seen); Urine Blood Negative /uL (Negative); Urine Specific Gravity 1.005 (1.001-1.035)
[2018-06-20 20:27] LABS: Albumin 4.1 g/dL (3.4-5.0); Calcium 8.5 mg/dL (8.5-10.1); Eosinophils % (manual) 15 (0-7); Lymphocytes % (manual) 42 (10.0-50.0); Monocytes % (manual) 6 (0-12); Potassium 4.6 mmol/L (3.5-5.1)
[2018-06-20 20:31] LABS: BUN/Creatinine Ratio 5.9; Bilirubin, Total 0.3 mg/dL (0.2-1.0); Total Protein 7.4 g/dL (6.4-8.2)
[2018-06-20 23:11] VITALS: BP 125/77
[2018-06-20] MEDS ORDERED: ONDANSETRON ODT 4 MG TAB PO ONE (23:50)
[2018-06-21] MEDS ORDERED: ONDANSETRON ODT 4 MG TAB PO ONE
[2018-06-21] MEDS ORDERED: MORPHINE SULFATE 4 MG/ML SYR/VIAL IV ONE (00:15)
[2018-06-21] MEDS ORDERED: FAMOTIDINE (10MG/ML) 2ML VL IV ONE (00:15)
[2018-06-21] MEDS ORDERED: ONDANSETRON HCL 4 MG/2 ML VIAL IV ONE ×2 (00:15)
[2018-06-21] MEDS ORDERED: diphenhdrAMINE HCL 25 MG CAP PO ONE (01:45)
== END 2018-06-21 02:47 | disposition left against medical advice (07) ==
LOC: ER 18:03 → TELE-WESTW 21:21 → UNDOADMIN 21:21 → ER 06-21 02:36
DX: K29.00 Acute gastritis without bleeding (principal); F41.9 Anxiety disorder, unspecified; I25.10 Atherosclerotic heart disease of native coronary artery without angina pectoris; E78.00 Pure hypercholesterolemia, unspecified; F17.210 Nicotine dependence, cigarettes, uncomplicated; Z95.0 Presence of cardiac pacemaker; Z88.8 Allergy status to other drugs, medicaments and biological substances; Z88.5 Allergy status to narcotic agent; Z91.013 Allergy to seafood; Z79.899 Other long term (current) drug therapy
CPT/HCPCS: 36415; 74176; 80053; 81001; 83690; 85007; 85027; 96374; 96375; 99284; J2270; J2405; J3490; J7030; Q0162

== ENCOUNTER 2018-09-23 14:37 | Emergency (ER) | payer OTHER ==
[~2018-09-23] VITALS: Ht 170.2 cm; Wt 81.6 kg
[2018-09-23 15:42] LABS: Albumin 3.7 g/dL (3.4-5.0); Calcium 9.2 mg/dL (8.5-10.1); Potassium 5.1 mmol/L (3.5-5.1)
[2018-09-23 15:43] LABS: Urine Bacteria FEW /hpf (None Seen); Urine Blood 2+ /uL (Negative); Urine Specific Gravity 1.009 (1.001-1.035); Urine WBC 83 /hpf (0 - 3)
[2018-09-23 15:46] LABS: Bilirubin, Total 0.3 mg/dL (0.2-1.0); Total Protein 7.6 g/dL (6.4-8.2)
[2018-09-23 16:08] LABS: Basophils # (auto) 0.1 uL; Basophils % (auto) 1.9 % (0.0-2.0); Eosinophils # (auto) 0.7 uL; Hematocrit 49.1 % (41.0-53.0); Hemoglobin 16.3 g/dL (13.5-17.5); Lymphocytes # (auto) 0.5 uL; Lymphocytes % (auto) 8.3 % (10.0-50.0); Mean Corpuscular Hemoglobin 31.9 pg (28.0-32.0); Mean Corpuscular Hgb Conc. 33.3 g/dL (32.0-36.0); Monocytes # (auto) 0.2 uL; Monocytes % (auto) 2.8 % (0.0-12.0); Neutrophils # (auto) 4.7 uL; Platelet Count (auto) 166 10^3/uL (140-450); Red Blood Cells 5.11 10^6/uL (4.5-5.90); Red Cell Distribution Width 12.9 % (11.8-14.3); White Blood Cell 6.2 10^3/uL (4.4-10.8)
[2018-09-23 16:36] VITALS: BP 112/72
[2018-09-23] MEDS ORDERED: HYDROmorphone HCL 2 MG/ML VL IV ONE (16:45)
[2018-09-23] MEDS ORDERED: cefTRIAXone 1GM/50ML D5W 50 ML IV ONE (16:45)
[2018-09-23] MEDS ORDERED: ONDANSETRON HCL 4 MG/2 ML VIAL IV ONE (16:45)
== END 2018-09-23 17:30 | disposition home or self-care (01) ==
LOC: ER 14:42
DX: N39.0 Urinary tract infection, site not specified (principal); R11.2 Nausea with vomiting, unspecified; R19.7 Diarrhea, unspecified; I25.10 Atherosclerotic heart disease of native coronary artery without angina pectoris; E78.00 Pure hypercholesterolemia, unspecified; F17.210 Nicotine dependence, cigarettes, uncomplicated; Z95.0 Presence of cardiac pacemaker; Z86.73 Personal history of transient ischemic attack (TIA), and cerebral infarction without residual deficits; Z88.5 Allergy status to narcotic agent; Z91.013 Allergy to seafood; Z88.8 Allergy status to other drugs, medicaments and biological substances; Z79.899 Other long term (current) drug therapy
CPT/HCPCS: 36415; 80053; 81001; 82150; 83690; 85025; 96365; 96375; 99283; J0696; J1170; J2405

== ENCOUNTER 2018-09-26 10:32 | Emergency (ER) | payer OTHER ==
[~2018-09-26] VITALS: Ht 170.2 cm; Wt 72.6 kg
[2018-09-26 11:11] LABS: Basophils # (auto) 0.1 uL; Basophils % (auto) 1.8 % (0.0-2.0); Eosinophils # (auto) 0.3 uL; Eosinophils % (auto) 8.3 % (0.0-7.0); Hematocrit 48.5 % (41.0-53.0); Hemoglobin 16.1 g/dL (13.5-17.5); Lymphocytes # (auto) 1.7 uL; Lymphocytes % (auto) 43.2 % (10.0-50.0); Mean Corpuscular Hemoglobin 31.9 pg (28.0-32.0); Mean Corpuscular Hgb Conc. 33.1 g/dL (32.0-36.0); Mean Corpuscular Volume 96.4 fL (80.0-100.0); Monocytes # (auto) 0.3 uL; Monocytes % (auto) 6.8 % (0.0-12.0); Neutrophils # (auto) 1.6 uL; Neutrophils % (auto) 39.9 % (37.0-80.0); Platelet Count (auto) 172 10^3/uL (140-450); Red Blood Cells 5.04 10^6/uL (4.5-5.90); Red Cell Distribution Width 12.5 % (11.8-14.3); White Blood Cell 3.9 10^3/uL (4.4-10.8)
[2018-09-26] MEDS ORDERED: ONDANSETRON HCL 4 MG/2 ML VIAL IV ONE (11:15)
[2018-09-26 11:28] LABS: Alanine Aminotransferase 16 U/L (16-61); Albumin 3.4 g/dL (3.4-5.0); Anion Gap 5 (5-15); Aspartate Aminotransferase 17 U/L (15-37); BUN/Creatinine Ratio 11.1; Blood Urea Nitrogen 10 mg/dL (7-18); Calcium 8.6 mg/dL (8.5-10.1); Carbon Dioxide 24 mmol/L (21-32); Chloride 111 mmol/L (98-107); GFR African American 129 mL/min; GFR Non-African American 107 mL/min; Glucose 102 mg/dL (74-106); Potassium 4.3 mmol/L (3.5-5.1); Sodium 140 mmol/L (136-145)
[2018-09-26 11:30] LABS: Alkaline Phosphatase 77 U/L (45-117); Bilirubin, Total 0.3 mg/dL (0.2-1.0); Total Protein 7.1 g/dL (6.4-8.2)
[2018-09-26] MEDS ORDERED: HYDROcodone-ACET 5/325MG TAB PO ONE (14:30)
[2018-09-26 15:12] VITALS: BP 119/67
== END 2018-09-26 15:16 | disposition home or self-care (01) ==
LOC: EDBD 10:32 → ER 10:42
DX: R07.89 Other chest pain (principal); E78.5 Hyperlipidemia, unspecified; F17.210 Nicotine dependence, cigarettes, uncomplicated; F12.10 Cannabis abuse, uncomplicated; Z86.73 Personal history of transient ischemic attack (TIA), and cerebral infarction without residual deficits; Z98.61 Coronary angioplasty status; Z88.6 Allergy status to analgesic agent; Z91.013 Allergy to seafood
CPT/HCPCS: 36415; 71046; 80053; 83880; 84484; 85025; 93005; 96374; 99284; J2405

== ENCOUNTER 2018-11-13 19:23 | Emergency (ER) | payer OTHER ==
[~2018-11-13] VITALS: Ht 172.7 cm; Wt 77.1 kg
[2018-11-13 20:10] LABS: Urine Bacteria FEW /hpf (None Seen); Urine Blood 3+ /uL (Negative); Urine Mucus FEW (None Seen); Urine Specific Gravity 1.015 (1.001-1.035); Urine WBC 57 /hpf (0 - 3)
[2018-11-13] MEDS ORDERED: HYDROcodone-ACET 10/325MG TAB PO ONE (20:15)
[2018-11-13] MEDS ORDERED: NITROFURANTOIN (MONO) 100 mg CAP PO ONE (20:15)
[2018-11-13 20:19] VITALS: BP 94/64
[2018-11-13 21:56] LABS: Basophils # (auto) 0.1 uL; Basophils % (auto) 1.3 % (0.0-2.0); Eosinophils # (auto) 0.4 uL; Eosinophils % (auto) 7.6 % (0.0-7.0); Hematocrit 46.5 % (41.0-53.0); Hemoglobin 15.7 g/dL (13.5-17.5); Lymphocytes # (auto) 2.1 uL; Lymphocytes % (auto) 36.3 % (10.0-50.0); Mean Corpuscular Hemoglobin 31.8 pg (28.0-32.0); Mean Corpuscular Hgb Conc. 33.6 g/dL (32.0-36.0); Mean Corpuscular Volume 94.4 fL (80.0-100.0); Monocytes # (auto) 0.4 uL; Monocytes % (auto) 6.7 % (0.0-12.0); Neutrophils # (auto) 2.7 uL; Neutrophils % (auto) 48.1 % (37.0-80.0); Nucleated Red Blood Cells % 0.1 %; Platelet Count (auto) 158 10^3/uL (140-450); Red Blood Cells 4.93 10^6/uL (4.5-5.90); Red Cell Distribution Width 13.1 % (11.8-14.3); White Blood Cell 5.7 10^3/uL (4.4-10.8)
[2018-11-13 22:04] LABS: Calcium 8.3 mg/dL (8.5-10.1); Potassium 4.4 mmol/L (3.5-5.1)
[2018-11-13 22:07] LABS: Albumin 3.6 g/dL (3.4-5.0); BUN/Creatinine Ratio 6.1
[2018-11-13 22:10] LABS: Bilirubin, Total 0.1 mg/dL (0.2-1.0); Total Protein 7.1 g/dL (6.4-8.2)
== END 2018-11-13 22:04 | disposition home or self-care (01) ==
LOC: ER 19:29
DX: N39.0 Urinary tract infection, site not specified (principal); F17.210 Nicotine dependence, cigarettes, uncomplicated; F12.10 Cannabis abuse, uncomplicated; E78.5 Hyperlipidemia, unspecified; Z87.11 Personal history of peptic ulcer disease; Z95.0 Presence of cardiac pacemaker; Z98.61 Coronary angioplasty status; Z88.6 Allergy status to analgesic agent; Z88.1 Allergy status to other antibiotic agents; Z91.013 Allergy to seafood
CPT/HCPCS: 36415; 74176; 80053; 81001; 82150; 83690; 85025

== ENCOUNTER 2018-12-13 12:56 | Inpatient (IN) | payer OTHER ==
[~2018-12-13] VITALS: Ht 172.7 cm; Wt 77.6 kg
[2018-12-13] MEDS ORDERED: SODIUM CHLORIDE 0.9% 1,000 ML IV ONE ×2 (13:31)
[2018-12-13] MEDS ORDERED: ONDANSETRON HCL 4 MG/2 ML VIAL IV ONE (13:45)
[2018-12-13 14:01] LABS: Basophils # (auto) 0 uL; Basophils % (auto) 0.2 % (0.0-2.0); Eosinophils # (auto) 0 uL; Hematocrit 49.6 % (41.0-53.0); Hemoglobin 16.4 g/dL (13.5-17.5); Lymphocytes # (auto) 1.6 uL; Lymphocytes % (auto) 11.9 % (10.0-50.0); Mean Corpuscular Hemoglobin 31.8 pg (28.0-32.0); Mean Corpuscular Hgb Conc. 33.2 g/dL (32.0-36.0); Monocytes # (auto) 0.4 uL; Monocytes % (auto) 3.3 % (0.0-12.0); Neutrophils # (auto) 11.1 uL; Neutrophils % (auto) 84.6 % (37.0-80.0); Platelet Count (auto) 123 10^3/uL (140-450); Red Blood Cells 5.17 10^6/uL (4.5-5.90); Red Cell Distribution Width 14.1 % (11.8-14.3); White Blood Cell 13.1 10^3/uL (4.4-10.8)
[2018-12-13 14:25] LABS: Albumin 3.8 g/dL (3.4-5.0); BUN/Creatinine Ratio 8.2; Potassium 4.6 mmol/L (3.5-5.1)
[2018-12-13 14:27] LABS: Bilirubin, Total 0.3 mg/dL (0.2-1.0); Total Protein 7.7 g/dL (6.4-8.2)
[2018-12-13] MEDS ORDERED: metroNIDAZOLE 500MG/100ML 100 ML IV ONE (14:45)
[2018-12-13] MEDS ORDERED: ONDANSETRON HCL 4 MG/2 ML VIAL IV PRN (16:30)
[2018-12-13] MEDS ORDERED: MORPHINE SULF INJ 2 MG/ML SYRINGE 1ML IV PRN (16:30)
[2018-12-13] MEDS ORDERED: NITROGLYCERIN 0.4 MG SL TAB SL PRN (16:30)
[2018-12-13] MEDS: SODIUM CHLORIDE 0.9% 1,000 ML IV SCH (16:45)
[2018-12-13] MEDS: HYDROmorphone HCL 2 MG/ML VL IV PRN ×2 (17:20→22:05)
[2018-12-13] MEDS: LEVOFLOXACIN 500MG 100 ML IV SCH (17:27)
[2018-12-13 17:48] LABS: Cholesterol 180 mg/dL (< 200); Triglycerides 61 mg/dL (< 150)
[2018-12-13 17:49] LABS: HDL Cholesterol 77 mg/dL (40-59); LDL Cholesterol 90 mg/dL (< 100)
--- NOTE | 2018-12-13 18:20 | NUR ---
Telemetry admit from ER YANG ANDRADE admitted to Telemetry unit after SBAR received. Patient oriented to Dacia Coombs, primary RN, unit, room, bed, and unit policies regarding patient care and visiting hours. Patient now on continuous telemetry monitoring, tele box # 61 and telemetry reading on arrival to unit is . Patient placed on bedside oxygen, weighed by bedscale and encouraged to call if they need something. All questions and concerns addressed, patient verbalized understanding. Note:
--- NOTE | 2018-12-13 18:40 | NUR ---
PT SIGNED AMA TO SMOKE PATIENT GOING OUTSIDE TO SMOKE
--- NOTE | 2018-12-13 19:30 | NUR ---
Opening Shift Note Assumed care of patient, awake and alert, ambulatory. No S/S of distress/SOB or pain. Patient wanted to go down AMA to smoke, noted AMA from in the chart, will continue to monitor
[2018-12-13 20:00] VITALS: BP 119/74
--- NOTE | 2018-12-13 21:30 | NUR ---
Patient leave the floor AMA to smoke
[2018-12-13 22:00] VITALS: BP 119/74
--- NOTE | 2018-12-13 22:00 | NUR ---
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 Per patient he just wanted to walk in the hallway. Explained the consequences of it and explained to patient that he'll be cleared of Iso once MRSA test is negative
[2018-12-13] MEDS: ATORVASTATIN 20 MG TAB PO SCH (22:04)
[2018-12-13] MEDS: methylPREDNISolone SOD SUCC 125 MG/2 ML VL IV SCH (22:04)
[2018-12-13] MEDS: metroNIDAZOLE 500MG/100ML 100 ML IV SCH (22:04)
[2018-12-13] MEDS: LEVETIRACETAM 500 MG TAB PO SCH (22:04)
--- NOTE | 2018-12-13 23:00 | NUR ---
Patient walking around the hallway. Security personnel noticed the patient since he's on Iso. Primary RN informed security staff that she'll talk to the patient to go back to his room. Primary RN encouraged patient and agreed to go back to his room
--- NOTE | 2018-12-13 23:10 | NUR ---
Patient became upset with security staff, per patient, he was forced to go back to his room. Patient demanded to talk to GEE Carranza and explained the situation
--- NOTE | 2018-12-13 23:30 | NUR ---
Patient went down again AMA to smoke
--- NOTE | 2018-12-13 23:55 | NUR ---
Patient came back on the floor and requesting to get Ativan. PRN Ativan given and patient calmed at this time, will continue to monitor
[2018-12-13] MEDS: LORazepam 2MG/ML-1ML VIAL IV PRN (23:56)
[2018-12-14 00:08] LABS: Urine Bacteria NONE SEEN /hpf (None Seen); Urine Blood Negative /uL (Negative); Urine Mucus FEW (None Seen); Urine Specific Gravity 1.006 (1.001-1.035); Urine WBC <1 /hpf (0 - 3)
[2018-12-14] MEDS ORDERED: LEVO25TA49 PO (01:31)
[2018-12-14] MEDS ORDERED: OLAN20TA13 PO (01:31)
[2018-12-14] MEDS ORDERED: TRAZ100T2 PO (01:31)
[2018-12-14] MEDS: HYDROmorphone HCL 2 MG/ML VL IV PRN ×5 (04:19→20:28)
[2018-12-14] MEDS: metroNIDAZOLE 500MG/100ML 100 ML IV SCH ×3 (05:48→21:54)
[2018-12-14] MEDS: methylPREDNISolone SOD SUCC 125 MG/2 ML VL IV SCH ×3 (05:49→21:54)
[2018-12-14] MEDS: SODIUM CHLORIDE 0.9% 1,000 ML IV SCH ×2 (05:49→16:18)
[2018-12-14 05:52] VITALS: BP 122/81
[2018-12-14 06:51] LABS: Basophils # (auto) 0 uL; Basophils % (auto) 0.3 % (0.0-2.0); Eosinophils # (auto) 0 uL; Hemoglobin 14.8 g/dL (13.5-17.5); Lymphocytes # (auto) 1.1 uL; Lymphocytes % (auto) 10.7 % (10.0-50.0); Mean Corpuscular Hemoglobin 32.6 pg (28.0-32.0); Mean Corpuscular Hgb Conc. 35.3 g/dL (32.0-36.0); Mean Corpuscular Volume 92.3 fL (80.0-100.0); Monocytes # (auto) 0.1 uL; Neutrophils # (auto) 8.9 uL; Nucleated Red Blood Cells % 0.1 %; Platelet Count (auto) 121 10^3/uL (140-450); Red Blood Cells 4.55 10^6/uL (4.5-5.90); Red Cell Distribution Width 14.1 % (11.8-14.3); White Blood Cell 10.1 10^3/uL (4.4-10.8)
[2018-12-14 06:54] LABS: Potassium 4.5 mmol/L (3.5-5.1)
[2018-12-14 06:56] LABS: INR 1.05 (0.9-1.15); Partial Thromboplastin Time 28.7 sec (23.64-32.05)
[2018-12-14 07:05] LABS: Albumin 3.6 g/dL (3.4-5.0); BUN/Creatinine Ratio 10.2; Bilirubin, Total 0.4 mg/dL (0.2-1.0); Calcium 8.6 mg/dL (8.5-10.1)
[2018-12-14 09:00] VITALS: BP 116/75
[2018-12-14] MEDS: OLANZapine 5 MG TAB PO SCH (09:37)
[2018-12-14] MEDS: NICOTINE 21MG/24 HR TOPICAL PATCH TD SCH (09:37)
[2018-12-14] MEDS: LEVETIRACETAM 500 MG TAB PO SCH ×2 (09:37→21:55)
--- NOTE | 2018-12-14 12:00 | NUR ---
Respiratory note: ATTEMPTED TO SEE PT FOR ABG. PT IS NOT IN ROOM. WILL CHECK IN AGAIN AT A LATER TIME.
--- NOTE | 2018-12-14 12:19 | NUR ---
Estimated needs based on CBW 81.3 kg-weight maintenance factors 4800-0625 kcal (23-25 kcal/kg) 65-81 g protein (0.8-1.0 g/kg) Addendum: 12/14/18 at [address] Amended: Links added.
[2018-12-14] MEDS: LORazepam 2MG/ML-1ML VIAL IV PRN (12:36)
[2018-12-14 13:00] VITALS: BP 108/74
--- NOTE | 2018-12-14 14:18 | NUR ---
Respiratory note: ATTEMPTED TO SEE PT FOR ABG AND AGAIN, PT IS NOT IN HIS ROOM. SPOKE WITH BUDDY MAGAÑA. RN STATES SHE WILL PAGE WHEN PT IS BACK IN HIS ROOM.
--- NOTE | 2018-12-14 14:55 | NUR ---
[facility] results Lab called and stated patients MRSA swab came back positive for MRSA in the nares.
[2018-12-14 17:00] VITALS: BP 128/62
[2018-12-14] MEDS: LEVOFLOXACIN 500MG 100 ML IV SCH (17:05)
--- NOTE | 2018-12-14 19:05 | NUR ---
Respiratory note: at bedside for med neb tx. pt not in room. RN communicated pt goes out to smoke.
--- NOTE | 2018-12-14 19:10 | NUR ---
Respiratory note: pt say me in [facility] stated he went down stairs because his brought him some food. pt would like me to return when in done with all other txs i have to do. will return to pts room to administer tx at a later time.
--- NOTE | 2018-12-14 19:30 | NUR ---
Opening Shift Note Assumed care of patient, awake and alert. No S/S of distress/SOB or pain. Instructed on POC and to call for assist PRN, patient verbalized understanding, call light within reach, will continue to monitor for changes Q1hr and PRN.
--- NOTE | 2018-12-14 19:55 | NUR ---
Respiratory note: AT BEDSIDE FOR MED NEB TX PT NOT IN ROOM AGAIN.
[2018-12-14] MEDS: IPRATROPIUM BROM 0.5 MG/2.5ML INH SOL NEB SCH ×2 (19:57→22:20)
[2018-12-14] MEDS: ALBUTEROL SULF 2.5 MG/0.5ML(0.5%) NEB SOLN NEB SCH ×2 (19:57→22:20)
--- NOTE | 2018-12-14 19:57 | NUR ---
Respiratory note: I WAS WALKING OUT PTS ROOM PT SEEN ME DOWN THE HALLWAY AND MADE SIGNALS HE IS ON HIS WAY TO HIS ROOM. TOLD PT I WILL NOT BE WAITING AROUND AGAIN. IF HE IS NOT IN HIS ROOM AT SCHEDULED MED NEB TIMES I ASSUME HE IS REFUSING AND HE WONT GET ONE UNTIL I AM PAGED BY RN. WILL NOTIFY RN OF ISSUE.
[2018-12-14] MEDS: ATORVASTATIN 20 MG TAB PO SCH (21:55)
[2018-12-14 22:00] VITALS: BP 122/81
[2018-12-14] MEDS: BUDESONIDE (INHALATION) 0.5 MG/2 ML NEB NEB SCH (22:20)
--- NOTE | 2018-12-14 22:20 | NUR ---
Respiratory note: AT BEDSIDE FOR MED NEB TX. PT NOT IN ROOM , BUDDY SALAS COMMUNICATED. PT WENT DOWN TO SMOKE.
--- NOTE | 2018-12-14 22:40 | NUR ---
Respiratory note: PT SAW ME IN HALLWAY ASKED FOR A TX.
[2018-12-15] MEDS: HYDROmorphone HCL 2 MG/ML VL IV PRN ×5 (00:36→20:50)
--- NOTE | 2018-12-15 01:05 | NUR ---
Patient stated he passed gas 4x
[2018-12-15] MEDS: LORazepam 2MG/ML-1ML VIAL IV PRN ×2 (01:31→13:40)
[2018-12-15 02:39] VITALS: BP 122/81
[2018-12-15 05:00] VITALS: BP 130/64
[2018-12-15] MEDS: metroNIDAZOLE 500MG/100ML 100 ML IV SCH ×3 (05:58→22:07)
[2018-12-15] MEDS: methylPREDNISolone SOD SUCC 125 MG/2 ML VL IV SCH ×3 (05:59→22:07)
[2018-12-15] MEDS: ALBUTEROL SULF 2.5 MG/0.5ML(0.5%) NEB SOLN NEB SCH ×5 (07:20→22:04)
[2018-12-15] MEDS: IPRATROPIUM BROM 0.5 MG/2.5ML INH SOL NEB SCH ×5 (07:20→22:04)
--- NOTE | 2018-12-15 07:20 | NUR ---
PT. NOT IN THE ROOM, UNABLE TO GIVE MN. TX. AT THIS TIME, WILL SEE PT. AT NEXT SCHEDULED TX. TIME.
--- NOTE | 2018-12-15 07:31 | NUR ---
Opening Shift Note Assumed care of patient, awake and alert. No S/S of distress/SOB. PT denies having any pain at this time. Bed in lowest and locked position with side rails upx2 and call light in reach. Instructed on POC and to call for assist PRN, will continue to monitor for changes Q1hr and PRN.
[2018-12-15 09:00] VITALS: BP 141/91
[2018-12-15] MEDS: OLANZapine 5 MG TAB PO SCH (09:30)
[2018-12-15] MEDS: LEVETIRACETAM 500 MG TAB PO SCH ×2 (09:30→22:07)
[2018-12-15] MEDS: NICOTINE 21MG/24 HR TOPICAL PATCH TD SCH (09:30)
[2018-12-15] MEDS: BUDESONIDE (INHALATION) 0.5 MG/2 ML NEB NEB SCH ×2 (10:00→22:04)
--- NOTE | 2018-12-15 10:02 | NUR ---
SPOKE TO DR. SLAUGHTER. NEW ORDERS RECEIVED, READ BACK AND VERIFIED.
[2018-12-15] MEDS ORDERED: GOLYTELY 4L KIT PO ONE (10:15)
--- NOTE | 2018-12-15 10:25 | NUR ---
PT. NOT IN HIS ROOM AT THIS TIME, UNABLE TO GIVE MN. TX. PT. MAY CALL FOR TX. IF NEEDED, WILL SEE PT. AT NEXT SCHEDULED TIME.
[2018-12-15 13:00] VITALS: BP 112/60
[2018-12-15 17:00] VITALS: BP 140/96
--- NOTE | 2018-12-15 17:30 | NUR ---
PT COMPLETED 2/3 OF THE GOLYTELY.
--- NOTE | 2018-12-15 19:27 | NUR ---
Patient wanted to take a shower. Noted No Order at this time. Paged hospitalist, awaiting call back
--- NOTE | 2018-12-15 19:42 | NUR ---
PT REFUSED MED NEB TX AT THIS TIME. PT DENIES ANY RESPIRATORY DISTRESS. PT REQUESTED TO RECEIVE TX AT A LATER TIME. WILL CONTINUE WITH NEXT SCHEDULED MED NEB.
--- NOTE | 2018-12-15 19:45 | NUR ---
Patient insisted to take a shower. Explained to patient that I still have no order for him to take a shower. Explained also that if anything bad happens to him, the hospital and staff are not liable for it. Patient verbalized understanding
--- NOTE | 2018-12-15 20:24 | NUR ---
Patient went down AMA to smoke
[2018-12-15 22:00] VITALS: BP 114/63
[2018-12-15] MEDS: ATORVASTATIN 20 MG TAB PO SCH (22:08)
--- NOTE | 2018-12-15 22:40 | NUR ---
Patient for Colonoscopy tomorrow, consents signed by patient in the chart. Instructed to be NPO after MN, patient verbalized understanding, will continue to monitor
--- NOTE | 2018-12-15 22:51 | NUR ---
Patient went down AMA to smoke
--- NOTE | 2018-12-15 23:00 | NUR ---
Stool specimen sent to lab for occult and culture test
--- NOTE | 2018-12-16 00:10 | NUR ---
IV insertion IV access obtained, via clean sterile technique by inserting 22 gauge catheter at RFA after [1] attempt(s). IV secured properly. No trauma to site. Patient tolerated well. NOTE: []
[2018-12-16] MEDS: HYDROmorphone HCL 2 MG/ML VL IV PRN ×3 (00:42→12:37)
[2018-12-16] MEDS: LORazepam 2MG/ML-1ML VIAL IV PRN (01:54)
[2018-12-16 05:00] VITALS: BP 115/75
[2018-12-16] MEDS: metroNIDAZOLE 500MG/100ML 100 ML IV SCH (05:18)
[2018-12-16] MEDS: methylPREDNISolone SOD SUCC 125 MG/2 ML VL IV SCH (05:18)
[2018-12-16] MEDS ORDERED: GOLYTELY 4L KIT PO ONE (06:00)
--- NOTE | 2018-12-16 06:20 | NUR ---
Instructed patient to finish the Golytely today and NPO after. Per patient, he has 3 bowel movements, brown and watery
--- NOTE | 2018-12-16 06:55 | NUR ---
Respiratory note: PT NOT IN ROOM. RETAIL LOAN ORIGINATOR ASSISTANT STATED THAT PT OFTEN GOES FOR WALKS. I RETURNED AT THE END OF MY ROUNDS TO SEE IF PT HAD RETURNED. PT HAD RETURNED. I INFORMED PT THAT I HAD BEEN IN EARLIER TO GIVE HIS MEDNEB TX, BUT HE WAS NOT IN THE ROOM. I THEN ASKED IF HE WANTED HIS TX? HE SAID YES HE WOULD. PT GIVEN MEDNEB TX AT 07:47. NO ADVERSE EFFECTS NOTED.
--- NOTE | 2018-12-16 07:32 | NUR ---
Opening Shift Note Assumed care of patient, awake and alert. No S/S of distress/SOB. PT reports pain rated at a 7/10. Pt informed that pain medication is not due at this time and has been re-oriented to the time that the pain medication is due. The pt verbalized understanding. Bed in lowest and locked position with side rails upx2 and call light in reach. Instructed on POC and to call for assist PRN, will continue to monitor for changes Q1hr and PRN.
[2018-12-16] MEDS: IPRATROPIUM BROM 0.5 MG/2.5ML INH SOL NEB SCH ×2 (07:47→10:00)
[2018-12-16] MEDS: ALBUTEROL SULF 2.5 MG/0.5ML(0.5%) NEB SOLN NEB SCH ×2 (07:47→10:00)
[2018-12-16 09:00] VITALS: BP 127/76
--- NOTE | 2018-12-16 09:50 | NUR ---
PT TAKEN TO PRE-OP.
[2018-12-16] MEDS: NICOTINE 21MG/24 HR TOPICAL PATCH TD SCH (10:00)
[2018-12-16] MEDS: BUDESONIDE (INHALATION) 0.5 MG/2 ML NEB NEB SCH (10:00)
--- NOTE | 2018-12-16 10:10 | NUR ---
Respiratory UNABLE TO GIVE PT MEDNEB TX DUE TO PT BEING AT PROCEDURE.
[2018-12-16] MEDS ORDERED: HYDROmorphone HCL 2 MG/ML VL IV PRN ×2 (10:15)
[2018-12-16] MEDS ORDERED: ONDANSETRON HCL 4 MG/2 ML VIAL IV PRN (10:15)
[2018-12-16] MEDS ORDERED: NALOXONE HCL 0.4 MG/ML VIAL IV PRN (10:15)
[2018-12-16] MEDS ORDERED: MIDAZOLAM HCL 1MG/1ML-2 ML VIAL ONE ×2 (10:24→10:32)
[2018-12-16] MEDS ORDERED: diphenhdrAMINE HCL 50 MG/1 ML VL ONE (10:24)
[2018-12-16] MEDS ORDERED: METOCLOPRAMIDE HCL 5MG/ml INJ 2ml VIAL ONE (10:24)
[2018-12-16] MEDS ORDERED: LIDOCAINE 2% (LOCAL ANESTH.) PF 5ml SDV ONE (10:25)
[2018-12-16] MEDS ORDERED: fentaNYL CITRATE 100 MCG/2 ML VL ONE (10:25)
[2018-12-16] MEDS ORDERED: PROPOFOL 10 MG/ML 20 ML IV ONE (10:25)
[2018-12-16] MEDS ORDERED: HYOSCYAMINE SULF 0.125 MG ODT TAB PO PRN (11:00)
--- NOTE | 2018-12-16 11:23 | NUR ---
PT BACK FROM COLONOSCOPY PROCEDURE.
--- NOTE | 2018-12-16 12:20 | NUR ---
DR. GALLEGO AT PT BEDSIDE DISCUSSING POC WITH PT. ACCORDING TO MD, IT IS OKAY TO ADMINISTER PAIN MEDICATIONS.
[2018-12-16] MEDS: OLANZapine 5 MG TAB PO SCH (12:36)
[2018-12-16] MEDS: LEVETIRACETAM 500 MG TAB PO SCH (12:36)
[2018-12-16 13:00] VITALS: BP 153/99
--- NOTE | 2018-12-16 13:40 | NUR ---
PT AMA PT STATED THAT HE WAS READY TO GO AND THAT IF HE DID NOT LEAVE "NOW" HE WOULD NOT HAVE A RIDE. THE PT WAS EDUCATED ON THE RISKS OF LEAVING THE HOSPITAL PRIOR TO PROPER DISCHARGE AND THE PT STATED "I DON'T CARE I JUST NEED TO LEAVE". THE PT DENIES ANY SOB OR DISTRESS. THE PT VERBALLY AGREED WITH THE INFORMATION ON RISKS OF LEAVING PRIOR TO THE PT BEING PROPERLY DISCHARGED. IV WAS REMOVED WITH CATHETER INTACT AND TELEMETRY REMOVED FROM PT AND SENT TO ICU. PT WALKED OFF THE UNIT AFTER SIGNING PROPER PAPERWORK, WITH NO DISTRESS NOTED AT THE TIME OF DEPARTURE.
--- NOTE | 2018-12-16 14:00 | NUR ---
PAGED DR. GALLEGO REGARDING AMA.
== END 2018-12-16 13:40 | disposition left against medical advice (07) | DRG 247 ==
LOC: ER 12:56 → EDUNIT# 12:56 → EDBD 12:56 → TELE 12:57 → TELE-WESTW 18:20
PROVIDERS: ADMIT Nurse Practitioner Acute Care; ATTEND Internal Medicine Nephrology
PROC: 0DJD8ZZ Inspection of Lower Intestinal Tract, Via Natural or Artificial Opening Endoscopic (ICD-10-PCS; principal; 2018-12-16 10:19)
DX: K56.0 Paralytic ileus (principal); J96.01 Acute respiratory failure with hypoxia; F20.9 Schizophrenia, unspecified; J45.901 Unspecified asthma with (acute) exacerbation; K52.9 Noninfective gastroenteritis and colitis, unspecified; J44.9 Chronic obstructive pulmonary disease, unspecified; I25.10 Atherosclerotic heart disease of native coronary artery without angina pectoris; E78.5 Hyperlipidemia, unspecified; E03.9 Hypothyroidism, unspecified; G40.909 Epilepsy, unspecified, not intractable, without status epilepticus; K92.1 Melena; F17.210 Nicotine dependence, cigarettes, uncomplicated; K64.8 Other hemorrhoids; F41.9 Anxiety disorder, unspecified; Z53.21 Procedure and treatment not carried out due to patient leaving prior to being seen by health care provider; F31.9 Bipolar disorder, unspecified; Z79.899 Other long term (current) drug therapy; Z86.73 Personal history of transient ischemic attack (TIA), and cerebral infarction without residual deficits; Z87.11 Personal history of peptic ulcer disease; Z87.74 Personal history of (corrected) congenital malformations of heart and circulatory system; Z80.0 Family history of malignant neoplasm of digestive organs; Z82.3 Family history of stroke; Z82.49 Family history of ischemic heart disease and other diseases of the circulatory system; Z91.041 Radiographic dye allergy status; Z88.5 Allergy status to narcotic agent; Z91.013 Allergy to seafood; Z88.1 Allergy status to other antibiotic agents
CPT/HCPCS: 36415; 36600; 45378; 71045; 74176; 80053; 80061; 80164; 81001; 82270; 82805; 84443; 84484; 85025; 85610; 85730; 87045; 87081; 87427; 94640; 96361; 96365; 96375; G0378; J1956; J2001; J2250; J2405; J2704; J3490

== ENCOUNTER 2019-01-19 09:03 | Emergency (ER) | payer OTHER ==
[~2019-01-19] VITALS: Ht 172.7 cm; Wt 77.1 kg
[~2019-01-19 09:03] MED LIST changes: +LEVO25TA49 PO; +OLAN20TA13 PO; +TRAZ100T2 PO
[2019-01-19 09:30] VITALS: BP 134/76
[2019-01-19] MEDS ORDERED: HYDROcodone-ACET 10/325MG TAB PO ONE (09:45)
== END 2019-01-19 10:50 | disposition home or self-care (01) ==
LOC: ER 09:04
DX: R07.89 Other chest pain (principal); R42 Dizziness and giddiness; R11.2 Nausea with vomiting, unspecified; F17.210 Nicotine dependence, cigarettes, uncomplicated; F12.10 Cannabis abuse, uncomplicated; E78.5 Hyperlipidemia, unspecified; Z86.73 Personal history of transient ischemic attack (TIA), and cerebral infarction without residual deficits; Z98.61 Coronary angioplasty status; Z95.0 Presence of cardiac pacemaker; Z88.6 Allergy status to analgesic agent; Z88.8 Allergy status to other drugs, medicaments and biological substances; Z91.013 Allergy to seafood
CPT/HCPCS: 71046; 93005

== ENCOUNTER 2019-03-17 15:36 | Emergency (ER) | payer OTHER ==
[~2019-03-17] VITALS: Ht 172.7 cm; Wt 76.7 kg
[~2019-03-17 15:36] MED LIST changes: -TRAZ100T2 PO; +TRAZ100T3 PO
[2019-03-17] MEDS ORDERED: SODIUM CHLORIDE 0.9% 1,000 ML IV ONE (15:48)
[2019-03-17 16:08] VITALS: BP 119/84
[2019-03-17 16:46] LABS: Basophils # (auto) 0.1 uL; Basophils % (auto) 1.3 % (0.0-2.0); Eosinophils # (auto) 0.4 uL; Eosinophils % (auto) 5.3 % (0.0-7.0); Hematocrit 46.8 % (41.0-53.0); Hemoglobin 15.6 g/dL (13.5-17.5); Mean Corpuscular Hemoglobin 32.3 pg (28.0-32.0); Mean Corpuscular Hgb Conc. 33.2 g/dL (32.0-36.0); Mean Corpuscular Volume 97.3 fL (80.0-100.0); Monocytes # (auto) 0.4 uL; Monocytes % (auto) 5.4 % (0.0-12.0); Neutrophils # (auto) 5.2 uL; Nucleated Red Blood Cells % 0.1 %; Platelet Count (auto) 153 10^3/uL (140-450); Red Blood Cells 4.81 10^6/uL (4.5-5.90); Red Cell Distribution Width 12.9 % (11.8-14.3); White Blood Cell 8.2 10^3/uL (4.4-10.8)
[2019-03-17 17:00] LABS: Albumin 3.9 g/dL (3.4-5.0); Anion Gap 5 (5-15); Blood Urea Nitrogen 8 mg/dL (7-18); Calcium 8.8 mg/dL (8.5-10.1); Carbon Dioxide 27 mmol/L (21-32); Chloride 107 mmol/L (98-107); Glucose 77 mg/dL (74-106); Potassium 4.1 mmol/L (3.5-5.1); Sodium 139 mmol/L (136-145)
[2019-03-17 17:11] LABS: Alanine Aminotransferase 13 U/L (16-61); Alkaline Phosphatase 52 U/L (45-117); Aspartate Aminotransferase 11 U/L (15-37); BUN/Creatinine Ratio 9.2; Bilirubin, Total 0.6 mg/dL (0.2-1.0); GFR African American 134 mL/min; GFR Non-African American 111 mL/min; Total Protein 7.1 g/dL (6.4-8.2)
[2019-03-17] MEDS ORDERED: HYDROmorphone HCL 2 MG/ML VL IV ONE (17:15)
[2019-03-17] MEDS ORDERED: HYDROcodone-ACET 10/325MG TAB PO ONE (17:15)
[2019-03-17] MEDS ORDERED: PROMETHAZINE HCL 25 MG/ML 1ML IV ONE (17:15)
== END 2019-03-17 18:07 | disposition home or self-care (01) ==
LOC: EDBD 15:36 → ER 15:41
DX: M79.10 Myalgia, unspecified site (principal); M79.605 Pain in left leg; R22.42 Localized swelling, mass and lump, left lower limb; R07.2 Precordial pain; I25.10 Atherosclerotic heart disease of native coronary artery without angina pectoris; E78.00 Pure hypercholesterolemia, unspecified; F17.210 Nicotine dependence, cigarettes, uncomplicated; Z79.899 Other long term (current) drug therapy; Z91.013 Allergy to seafood; Z88.8 Allergy status to other drugs, medicaments and biological substances; Z88.5 Allergy status to narcotic agent
CPT/HCPCS: 36415; 71045; 80053; 84484; 85025; 93005; 93971; 96374; 96375; 99284; J1170; J2550; J7030

== ENCOUNTER 2019-05-29 07:26 | Emergency (ER) | payer OTHER ==
[~2019-05-29] VITALS: Ht 172.7 cm; Wt 77.1 kg
[2019-05-29 07:53] LABS: Urine WBC None Seen /hpf (0 - 3)
[2019-05-29 07:55] LABS: Hematocrit 44.5 % (41.0-53.0); Hemoglobin 15.3 g/dL (13.5-17.5); Mean Corpuscular Hemoglobin 32.8 pg (28.0-32.0); Mean Corpuscular Hgb Conc. 34.4 g/dL (32.0-36.0); Mean Corpuscular Volume 95.2 fL (80.0-100.0); Platelet Count (auto) 157 10^3/uL (140-450); Red Blood Cells 4.67 10^6/uL (4.5-5.90); Red Cell Distribution Width 13.7 % (11.8-14.3); White Blood Cell 5.1 10^3/uL (4.4-10.8)
[2019-05-29 08:00] LABS: Urine Bacteria NONE SEEN /hpf (None Seen); Urine Blood Negative /uL (Negative)
[2019-05-29 08:01] LABS: Band Neutrophils % (manual) 0; Basophils % (manual) 0 (0.0-2.0); Blast Cells 0; Metamyelocytes % 0; Myelocytes % 0; Promyelocytes % 0; Reactive Lymphocytes 0
[2019-05-29 08:07] VITALS: BP 123/84
[2019-05-29 08:11] LABS: Albumin 3.6 g/dL (3.4-5.0); BUN/Creatinine Ratio 4.9; Calcium 8.6 mg/dL (8.5-10.1); Potassium 3.5 mmol/L (3.5-5.1)
[2019-05-29 08:13] LABS: Bilirubin, Total 0.4 mg/dL (0.2-1.0); Total Protein 7.2 g/dL (6.4-8.2)
[2019-05-29] MEDS ORDERED: SODIUM CHLORIDE 0.9% 1,000 ML IV ONE ×2 (08:21)
[2019-05-29 08:30] LABS: Eosinophils % (manual) 14 (0-7); Lymphocytes % (manual) 38 (10.0-50.0); Monocytes % (manual) 8 (0-12)
[2019-05-29] MEDS ORDERED: ONDANSETRON HCL 4 MG/2 ML VIAL IV ONE (08:30)
[2019-05-29] MEDS ORDERED: HYDROmorphone HCL 2 MG/ML VL IV ONE (08:30)
== END 2019-05-29 09:34 | disposition home or self-care (01) ==
LOC: ER 07:26
DX: K46.9 Unspecified abdominal hernia without obstruction or gangrene (principal); I25.2 Old myocardial infarction; E78.5 Hyperlipidemia, unspecified; E07.9 Disorder of thyroid, unspecified; F17.210 Nicotine dependence, cigarettes, uncomplicated; Z88.5 Allergy status to narcotic agent; Z88.8 Allergy status to other drugs, medicaments and biological substances; Z88.1 Allergy status to other antibiotic agents; Z91.013 Allergy to seafood
CPT/HCPCS: 36415; 74176; 80053; 81001; 85007; 85027; 96361; 96374; 96375; 99284; J1170; J2405; J7030

== ENCOUNTER 2019-06-06 17:50 | Emergency (ER) | payer OTHER ==
[~2019-06-06] VITALS: Ht 172.7 cm; Wt 77.1 kg
[2019-06-06 18:00] VITALS: BP 144/88
[2019-06-06 19:14] LABS: Basophils # (auto) 0 10 ^3/uL (0-0.2); Basophils % (auto) 0.7 % (0.0-2.0); Eosinophils # (auto) 0.4 10 ^3/uL (0-0.8); Eosinophils % (auto) 7.2 % (0.0-7.0); Hemoglobin 15.6 g/dL (13.5-17.5); Lymphocytes # (auto) 1.5 10 ^3/uL (0.4-5.4); Lymphocytes % (auto) 30.6 % (10.0-50.0); Mean Corpuscular Hemoglobin 32.8 pg (28.0-32.0); Mean Corpuscular Hgb Conc. 34.6 g/dL (32.0-36.0); Mean Corpuscular Volume 94.9 fL (80.0-100.0); Monocytes # (auto) 0.4 10 ^3/uL (0-1.3); Monocytes % (auto) 8.4 % (0.0-12.0); Neutrophils # (auto) 2.6 10 ^3/uL (1.6-8.6); Neutrophils % (auto) 53.1 % (37.0-80.0); Nucleated Red Blood Cells % 0.1 %; Platelet Count (auto) 143 10^3/uL (140-450); Red Blood Cells 4.74 10^6/uL (4.5-5.90); Red Cell Distribution Width 13.4 % (11.8-14.3)
[2019-06-06 19:43] LABS: Albumin 3.5 g/dL (3.4-5.0); BUN/Creatinine Ratio 12.4; Calcium 8.8 mg/dL (8.5-10.1); Potassium 4.2 mmol/L (3.5-5.1)
[2019-06-06] MEDS ORDERED: cefTRIAXone 1GM/50ML D5W 50 ML IV ONE (19:45)
[2019-06-06 19:46] LABS: Bilirubin, Total 0.5 mg/dL (0.2-1.0); Total Protein 7.1 g/dL (6.4-8.2)
[2019-06-06] MEDS ORDERED: cefTRIAXone SOD 1,000 MG VL ONE (20:00)
[2019-06-06] MEDS ORDERED: ONDANSETRON ODT 4 MG TAB PO ONE ×2 (20:00→20:06)
[2019-06-06] MEDS ORDERED: cefTRIAXone W LIDOCAINE 1 GM IM IM ONE (20:00)
== END 2019-06-06 20:29 | disposition home or self-care (01) ==
LOC: ER 17:50
DX: K59.00 Constipation, unspecified (principal); E78.5 Hyperlipidemia, unspecified; I25.10 Atherosclerotic heart disease of native coronary artery without angina pectoris; Z95.0 Presence of cardiac pacemaker; F17.210 Nicotine dependence, cigarettes, uncomplicated; Z79.899 Other long term (current) drug therapy; Z88.8 Allergy status to other drugs, medicaments and biological substances; Z91.013 Allergy to seafood
CPT/HCPCS: 36415; 74176; 80053; 85025; 96372; 99284; J0696; Q0162

== ENCOUNTER 2019-06-16 17:58 | Emergency (ER) | payer OTHER ==
[~2019-06-16] VITALS: Ht 172.7 cm; Wt 77.1 kg
[~2019-06-16 17:58] MED LIST changes: -LEVE500T22 PO; +LEVE500T32 PO
[2019-06-16] MEDS ORDERED: SODIUM CHLORIDE 0.9% 1,000 ML IVB ONE (18:40)
[2019-06-16] MEDS ORDERED: ONDANSETRON HCL 4 MG/2 ML VIAL IV ONE (18:45)
[2019-06-16 19:08] LABS: Basophils # (auto) 0.1 10 ^3/uL (0-0.2); Basophils % (auto) 0.8 % (0.0-2.0); Eosinophils # (auto) 0.7 10 ^3/uL (0-0.8); Eosinophils % (auto) 11.7 % (0.0-7.0); Hematocrit 42.4 % (41.0-53.0); Hemoglobin 14.6 g/dL (13.5-17.5); Mean Corpuscular Hemoglobin 32.9 pg (28.0-32.0); Mean Corpuscular Hgb Conc. 34.4 g/dL (32.0-36.0); Mean Corpuscular Volume 95.6 fL (80.0-100.0); Monocytes # (auto) 0.5 10 ^3/uL (0-1.3); Monocytes % (auto) 7.7 % (0.0-12.0); Neutrophils % (auto) 47.8 % (37.0-80.0); Platelet Count (auto) 161 10^3/uL (140-450); Red Blood Cells 4.44 10^6/uL (4.5-5.90); Red Cell Distribution Width 13.5 % (11.8-14.3); White Blood Cell 6.3 10^3/uL (4.4-10.8)
[2019-06-16 19:26] LABS: INR 1.12 (0.9-1.15); Partial Thromboplastin Time 27.9 sec (23.64-32.05)
[2019-06-16 19:27] LABS: BUN/Creatinine Ratio 10.1; Calcium 8.2 mg/dL (8.5-10.1); Magnesium 1.7 mg/dL (1.6-2.6); Potassium 3.6 mmol/L (3.5-5.1)
[2019-06-16 19:30] LABS: Bilirubin, Total 0.2 mg/dL (0.2-1.0); Total Protein 6.3 g/dL (6.4-8.2)
[2019-06-16 19:36] VITALS: BP 119/79
[2019-06-16] MEDS ORDERED: diphenhdrAMINE HCL 50 MG/1 ML VL IV ONE (20:00)
[2019-06-16] MEDS ORDERED: MORPHINE SULFATE 4 MG/ML SYR/VIAL IV ONE (20:00)
[2019-07-17] MEDS ORDERED: MESA400C PO (14:23)
[2019-07-17] MEDS ORDERED: FOLI1TAB6 PO (14:28)
== END 2019-06-16 21:01 | disposition home or self-care (01) ==
LOC: ER 17:58
DX: K52.9 Noninfective gastroenteritis and colitis, unspecified (principal); F10.20 Alcohol dependence, uncomplicated; F15.10 Other stimulant abuse, uncomplicated; Y90.9 Presence of alcohol in blood, level not specified; I25.10 Atherosclerotic heart disease of native coronary artery without angina pectoris; E78.5 Hyperlipidemia, unspecified; F17.210 Nicotine dependence, cigarettes, uncomplicated; Z91.013 Allergy to seafood; Z88.5 Allergy status to narcotic agent; Z88.8 Allergy status to other drugs, medicaments and biological substances
CPT/HCPCS: 36415; 74176; 80053; 80320; 82150; 83605; 83690; 83735; 85025; 85610; 85730; 96361; 96374; 96375; 99284; J1200; J2270; J2405

== ENCOUNTER 2019-06-26 20:40 | Inpatient (IN) | payer OTHER ==
[~2019-06-26] VITALS: Ht 170.2 cm; Wt 76.7 kg
[~2019-06-26 20:40] MED LIST changes: +LEVE500T22 PO; -LEVE500T32 PO
[2019-06-26] MEDS ORDERED: PANTOPRAZOLE 40 MG/10 ML VIAL INJ IV STA (20:43)
[2019-06-26] MEDS ORDERED: SODIUM CHLORIDE 0.9% 1,000 ML IVB ONE (20:43)
[2019-06-26] MEDS ORDERED: MORPHINE SULFATE 4 MG/ML SYR/VIAL IV ONE (20:45)
[2019-06-26] MEDS ORDERED: ONDANSETRON HCL 4 MG/2 ML VIAL IV ONE (20:45)
[2019-06-26 21:34] LABS: Basophils # (auto) 0.1 10 ^3/uL (0-0.2); Basophils % (auto) 0.7 % (0.0-2.0); Eosinophils # (auto) 0 10 ^3/uL (0-0.8); Eosinophils % (auto) 0.3 % (0.0-7.0); Hematocrit 41.6 % (41.0-53.0); Hemoglobin 14.2 g/dL (13.5-17.5); Lymphocytes # (auto) 2.3 10 ^3/uL (0.4-5.4); Lymphocytes % (auto) 17.4 % (10.0-50.0); Mean Corpuscular Hemoglobin 32.6 pg (28.0-32.0); Mean Corpuscular Hgb Conc. 34.1 g/dL (32.0-36.0); Mean Corpuscular Volume 95.5 fL (80.0-100.0); Monocytes % (auto) 7.3 % (0.0-12.0); Neutrophils # (auto) 9.8 10 ^3/uL (1.6-8.6); Neutrophils % (auto) 74.3 % (37.0-80.0); Platelet Count (auto) 127 10^3/uL (140-450); Red Blood Cells 4.36 10^6/uL (4.5-5.90); Red Cell Distribution Width 13.9 % (11.8-14.3); White Blood Cell 13.2 10^3/uL (4.4-10.8)
[2019-06-26] MEDS ORDERED: diphenhdrAMINE HCL 50 MG/1 ML VL IV ONE (21:45)
[2019-06-26 21:53] LABS: Albumin 3.4 g/dL (3.4-5.0); BUN/Creatinine Ratio 18.1; Calcium 9.1 mg/dL (8.5-10.1); Potassium 4.5 mmol/L (3.5-5.1)
[2019-06-26 21:55] LABS: Bilirubin, Total 0.2 mg/dL (0.2-1.0); Total Protein 6.8 g/dL (6.4-8.2)
[2019-06-26] MEDS ORDERED: DOCUSATE SOD 100 MG CAP PO PRN (22:15)
[2019-06-26] MEDS ORDERED: MORPHINE SULFATE 4 MG/ML SYR/VIAL IV PRN (22:15)
[2019-06-26] MEDS ORDERED: ACETAMINOPHEN 325 MG TAB PO PRN (22:15)
[2019-06-26 23:45] VITALS: BP 113/83
--- NOTE | 2019-06-26 23:45 | NUR ---
MS admit from ER YANG ANDRADE admitted to tele/MS after SBAR received. Patient oriented to CJ GONZALES RN primary RN, unit, room, bed, and unit policies regarding patient care and visiting hours. Patient weighed by bedscale and encouraged to call if they need something. All questions and concerns addressed, patient verbalized understanding.
[2019-06-26] MEDS: SODIUM CHLORIDE 0.9% 1,000 ML IV SCH (23:58)
[2019-06-27] VITALS (7 sets, daily range): BP systolic 99–137; BP diastolic 49–78
[2019-06-27] MEDS: ONDANSETRON HCL 4 MG/2 ML VIAL IV PRN ×5 (00:02→22:51)
[2019-06-27] MEDS: HYDROmorphone HCL 2 MG/ML VL IV PRN ×6 (00:03→22:51)
[2019-06-27] MEDS ORDERED: ALBUAER3 IN (00:14)
[2019-06-27] MEDS ORDERED: IPRAAER6 NEB (00:14)
--- NOTE | 2019-06-27 00:15 | NUR ---
PATIENT C/O 10/10 ABDOMINAL PAIN AND NAUSEA REQUESTING PAIN AND NAUSEA MEDICATION. ADMINISTERED DILAUDID 0.5MG IV AND ZOFRAN 4MG IV PRESCRIBED. PATIENT TOLERATED WELL. WILL CONTINUE TO MONITOR PATIENT.
[2019-06-27] MEDS ORDERED: PATIENTS OWN MEDICATION (Trazodone Hcl 100 MG) PO SCH ×2 (00:45→22:00)
[2019-06-27] MEDS: traZODone HCL 50 MG TAB PO SCH ×2 (00:52→21:49)
[2019-06-27] MEDS: ALBUTEROL SULF 2.5 MG/0.5ML(0.5%) NEB SOLN NEB PRN ×3 (01:02→23:12)
[2019-06-27] MEDS: IPRATROPIUM BROM 0.5 MG/2.5ML INH SOL NEB PRN ×3 (01:02→23:12)
[2019-06-27] MEDS: HYDROcodone-ACET 5/325MG TAB PO PRN ×2 (02:14→06:51)
--- NOTE | 2019-06-27 02:15 | NUR ---
PATIENT C/O 7/10 ABDOMINAL PAIN AND NAUSEA REQUESTING PAIN AND NAUSEA MEDICATION. ADMINISTERED NORCO 5/325MG PO PRESCRIBED. PATIENT TOLERATED WELL. WILL CONTINUE TO MONITOR PATIENT
[2019-06-27 02:36] LABS: Amphetamine Screen, Urine NEGATIVE (NEGATIVE); Barbiturate Scree,Urine NEGATIVE (NEGATIVE); Benzodiazephine Screen, Urine NEGATIVE (NEGATIVE); Cannabinoid Screen, Urine POSITIVE (NEGATIVE); Cocaine Screen, Urine NEGATIVE (NEGATIVE); Opiate Scree,Urine POSITIVE (NEGATIVE); Phencyclidine Screen, Urine NEGATIVE (NEGATIVE)
--- NOTE | 2019-06-27 04:25 | NUR ---
AGGITATION PATIENT UPSET STATES THERE WAS A COMPLAINT ABOUT HIM DISTURBING STAFF AND BEING DISRUPTIVE IN HALLWAY. PATIENT INSTRUCTED TO WALK IN HALLWAYS OF [facility], AND TO RETURN TO ROOM FOR VITALS AND BLOOD DRAW AND TRY TO GET REST. SECURITY AND CHARGE NURSE AT BEDSIDE. PLACED A PAGE TO HOSPITALIST FOR ORDERS PATIENT REQUESTS MEDICATION TO HELP CALM HIM. Addendum: 06/27/19 at 7466 by CJ GONZALES RN RN REPAGED HOSPITALIST AWAITING CALL BACK
[2019-06-27] MEDS: metroNIDAZOLE 500MG/100ML 100 ML IV SCH ×3 (05:29→21:50)
[2019-06-27] MEDS: LORazepam 0.5 MG TAB PO PRN ×2 (05:39→15:54)
[2019-06-27 05:44] LABS: Basophils # (auto) 0.1 10 ^3/uL (0-0.2); Basophils % (auto) 0.5 % (0.0-2.0); Eosinophils # (auto) 0.1 10 ^3/uL (0-0.8); Eosinophils % (auto) 0.8 % (0.0-7.0); Hematocrit 41.2 % (41.0-53.0); Lymphocytes # (auto) 3.1 10 ^3/uL (0.4-5.4); Lymphocytes % (auto) 26.7 % (10.0-50.0); Mean Corpuscular Hemoglobin 32.8 pg (28.0-32.0); Mean Corpuscular Hgb Conc. 33.9 g/dL (32.0-36.0); Mean Corpuscular Volume 96.8 fL (80.0-100.0); Monocytes # (auto) 0.7 10 ^3/uL (0-1.3); Monocytes % (auto) 6.3 % (0.0-12.0); Neutrophils # (auto) 7.6 10 ^3/uL (1.6-8.6); Neutrophils % (auto) 65.7 % (37.0-80.0); Platelet Count (auto) 138 10^3/uL (140-450); Red Blood Cells 4.26 10^6/uL (4.5-5.90); Red Cell Distribution Width 14.1 % (11.8-14.3); White Blood Cell 11.6 10^3/uL (4.4-10.8)
[2019-06-27 06:03] LABS: Potassium 4.5 mmol/L (3.5-5.1)
[2019-06-27 06:15] LABS: BUN/Creatinine Ratio 16.3; Calcium 8.8 mg/dL (8.5-10.1)
--- NOTE | 2019-06-27 06:52 | NUR ---
PATIENT C/O 7/10 ABDOMINAL PAIN AND NAUSEA REQUESTING PAIN AND NAUSEA MEDICATION. ADMINISTERED NORCO 5/325MG PO PRESCRIBED. PATIENT TOLERATED WELL. WILL CONTINUE TO MONITOR PATIENT
--- NOTE | 2019-06-27 07:30 | NUR ---
Opening Shift Note Assumed care of patient, patient currently sleeping, breathing even and unlabored, easily awakened via verbal stimuli, No S/S of distress/SOB or pain reported at this time. Instructed on POC and to call for assist PRN, call light within reach, will continue to monitor for changes Q1hr and PRN.
[2019-06-27] MEDS: levETIRAcetam 500 MG TAB PO SCH ×2 (08:44→21:50)
[2019-06-27] MEDS: LEVOTHYROXINE SODIUM 25 MCG TAB PO SCH (08:44)
[2019-06-27] MEDS ORDERED: PATIENTS OWN MEDICATION (Divalproex Sodium (Depakote) 1 TAB) PO SCH (10:00)
--- NOTE | 2019-06-27 11:16 | NUR ---
GI SPOKE WITH DR SLAUGHTER REGARDING CONSULT, STATES DR DEVI IS CERTIFIED DRUG COUNSELOR TODAY, WILL PAGE DR DEVI RE:CONSULT
[2019-06-27] MEDS: SODIUM CHLORIDE 0.9% 1,000 ML IV SCH ×2 (11:35→21:50)
--- NOTE | 2019-06-27 12:40 | NUR ---
PAIN PT C/O ABD PAIN 8/10, NO FACIAL GRIMACING OR MOANING NOTED, VS NOTED, MEDICATED WITH DILAUDID 0.5 ORDERED, CONT CARE
--- NOTE | 2019-06-27 15:02 | NUR ---
GI AT BEDSIDE DR Edison DEVI AT BEDSIDE, DISCUSSING POC WITH PT, PT AWAKE AXOX4, NEW ORDERS RECEIVED TO ADVANCE DIET TO FULL LIQUID, CONT CARE
--- NOTE | 2019-06-27 19:17 | NUR ---
RECEIVED PATIENT FROM DAY SHIFT RN. PATIENT RESTING IN BED. NO S/S OF DISTRESS NOTED. DENIED PAIN AND NAUSEA FOR NOW AFTER MEDICATION GIVEN EARLIER. POC INSTRUCTED AND ENCOURAGED PATIENT TO CALL FOR TANK WAGON DRIVER IF NEEDED. BED IN LOWEST POSITION WITH PADDED SIDE RAILS UP X 2. CALL [place] WITHIN REACH. CONTINUE TO MONITOR FOR CHANGES Q1H AND PRN.
[2019-06-27] MEDS: MESALAMINE 400mg Delayed Release Cap PO SCH (21:50)
[2019-06-27] MEDS ORDERED: OLANZAPINE PO SCH (22:00)
--- NOTE | 2019-06-27 22:52 | NUR ---
PATIENT C/O ABD PAIN @ 11/22. MEDICATED PATIENT ORDERED. CONTINUE TO MONITOR.
--- NOTE | 2019-06-27 22:56 | NUR ---
RT PAGED FOR BREATHING TREATMENT
--- NOTE | 2019-06-27 23:20 | NUR ---
REASSESSED PAIN 06/22. RT AT BEDSIDE FOR BREATHING TREATMENT. CONTINUE TO MONITOR.
--- NOTE | 2019-06-28 02:31 | NUR ---
PATIENT WALKED ON HALLWAY WITH STEADY GAIT. NO S/S OF DISTRESS NOTED. CONTINUE CARE
--- NOTE | 2019-06-28 04:19 | NUR ---
PATIENT SLEEPING. NO S/S OF DISTRESS NOTED. CONTINUE TO MONITOR.
[2019-06-28 05:14] VITALS: BP 99/59
[2019-06-28] MEDS: ONDANSETRON HCL 4 MG/2 ML VIAL IV PRN ×2 (06:17→12:13)
[2019-06-28] MEDS: metroNIDAZOLE 500MG/100ML 100 ML IV SCH (06:17)
[2019-06-28] MEDS: MESALAMINE 400mg Delayed Release Cap PO SCH ×2 (06:17→14:23)
[2019-06-28] MEDS: HYDROmorphone HCL 2 MG/ML VL IV PRN (06:18)
--- NOTE | 2019-06-28 06:18 | NUR ---
PATIENT C/O ABD PAIN @ 9/10 WITH NAUSEA. MEDICATED PATIENT ORDERED. CONTINUE TO MONITOR.
--- NOTE | 2019-06-28 06:45 | NUR ---
RT PAGED FOR BREATHING TREATMENT
[2019-06-28] MEDS: ALBUTEROL SULF 2.5 MG/0.5ML(0.5%) NEB SOLN NEB PRN (07:05)
[2019-06-28] MEDS: IPRATROPIUM BROM 0.5 MG/2.5ML INH SOL NEB PRN (07:05)
[2019-06-28 07:30] VITALS: BP 95/59
--- NOTE | 2019-06-28 07:30 | NUR ---
Opening Note Assumed patient care from RENEE RN.
--- NOTE | 2019-06-28 08:26 | NUR ---
Patient Rounds Patient is currently resting in bed with eyes closed, respirations are even and unlabored. No signs of distress at this time. Safety precautions are in place, will continue to monitor.
[2019-06-28 08:54] VITALS: BP 95/59
[2019-06-28] MEDS: LEVOTHYROXINE SODIUM 25 MCG TAB PO SCH (09:55)
[2019-06-28] MEDS: levETIRAcetam 500 MG TAB PO SCH (09:55)
[2019-06-28] MEDS ORDERED: PANTOPRAZOLE 40 MG TAB PO SCH (10:00)
--- NOTE | 2019-06-28 10:09 | NUR ---
Patient Rounds Patient currently in bed stating his having abdominal pain and is requesting his Dilaudid, patient states, "My Dilaudid is due at 1200, can I have it then?" Patient reeducated on pain management. Patient is currently laying on his left side with eyes closed, respirations even and unlabored, patient states he is currently having some shortness of breath (respirations are 18, SpO2 at 97%)and is requesting breathing treatment when it is due. Safety precautions in place, will continue to monitor.
[2019-06-28 11:49] LABS: Basophils # (auto) 0.1 10 ^3/uL (0-0.2); Basophils % (auto) 1.2 % (0.0-2.0); Eosinophils # (auto) 0.3 10 ^3/uL (0-0.8); Eosinophils % (auto) 5.8 % (0.0-7.0); Hematocrit 38.2 % (41.0-53.0); Hemoglobin 12.9 g/dL (13.5-17.5); Lymphocytes # (auto) 1.8 10 ^3/uL (0.4-5.4); Lymphocytes % (auto) 37.6 % (10.0-50.0); Mean Corpuscular Hemoglobin 32.6 pg (28.0-32.0); Mean Corpuscular Hgb Conc. 33.7 g/dL (32.0-36.0); Mean Corpuscular Volume 96.8 fL (80.0-100.0); Monocytes # (auto) 0.5 10 ^3/uL (0-1.3); Monocytes % (auto) 10.3 % (0.0-12.0); Neutrophils # (auto) 2.1 10 ^3/uL (1.6-8.6); Neutrophils % (auto) 45.1 % (37.0-80.0); Nucleated Red Blood Cells % 0.1 %; Platelet Count (auto) 115 10^3/uL (140-450); Red Blood Cells 3.95 10^6/uL (4.5-5.90); Red Cell Distribution Width 13.7 % (11.8-14.3); White Blood Cell 4.7 10^3/uL (4.4-10.8)
--- NOTE | 2019-06-28 11:54 | NUR ---
Lab Spoke with Kerri (lab) regarding lab draws-notified that patient has a peripheral IV and does not have a central line for lab draws.
--- NOTE | 2019-06-28 12:00 | NUR ---
Pain Patient states he has 9/10 pain, patient requested [place] for pain management. Will continue to monitor.
[2019-06-28] MEDS: HYDROcodone-ACET 5/325MG TAB PO PRN (12:17)
--- NOTE | 2019-06-28 12:18 | NUR ---
Patient Per patient, Preston KC, discussed plan of care and discharge with patient. Patient states MD said she will put in a discharge order and he will be returning home with his fiance. Patient is currently out of bed. Safety precautions are in place, encouraged to call for assistance, will continue to monitor.
--- NOTE | 2019-06-28 12:21 | NUR ---
Pain Medication Request Patient requesting to receive Dilaudid (discontinued med). Dr. Johnston aware and informed patient that he will be discharged and will be prescribed pain medication for home. Patient asked how long it would take for discharge process, patient informed that RN requires a discharge order in order to complete discharge packet. Patient verbalized understanding and returned to room. Will continue to monitor.
--- NOTE | 2019-06-28 12:45 | NUR ---
AMA smoke Patient signed AMA to smoke.
--- NOTE | 2019-06-28 12:45 | NUR ---
Patient Patient inquiring about discharge, patient informed that MD must post discharge order. Will continue to monitor.
[2019-06-28 13:00] VITALS: BP 126/72
--- NOTE | 2019-06-28 13:15 | NUR ---
Patient at Nurses Station Patient asking about discharge, patient informed that discharge packet is not yet ready. Will continue to monitor.
[2019-06-28 13:51] VITALS: BP 126/72
[2019-06-28] MEDS ORDERED: metroNIDAZOLE 500 MG TAB PO SCH (14:00)
--- NOTE | 2019-06-28 14:15 | NUR ---
Patient Discharge questions Patient standing at room door asking when discharge will be ready. Patient informed that packet is almost complete and must be reviewed by witness (HIPAA).
--- NOTE | 2019-06-28 14:30 | NUR ---
Discharge Discharge instructions given as ordered. Encourage to follow up with PMD as instructed. All questions and concerns addressed. Patient verbalized understanding. IV removed with catheter intact, pressure dressing applied. Patient ambulated to vehicle with all personal belongings. No distress noted at time of departure. Patient instructed to follow up with PCP, appointment information given. Patient given information for follow up with Dr. Schumacher. Patient verbalized understanding.
== END 2019-06-28 14:30 | disposition home or self-care (01) | DRG 249 ==
LOC: EDBD 20:40 → ER 20:44 → OVERFLOW 20:45 → WEST WING 23:21
PROVIDERS: ADMIT Hospitalist; ATTEND Internal Medicine Nephrology
DX: K52.9 Noninfective gastroenteritis and colitis, unspecified (principal); F20.9 Schizophrenia, unspecified; R65.10 Systemic inflammatory response syndrome (SIRS) of non-infectious origin without acute organ dysfunction; F41.9 Anxiety disorder, unspecified; F17.210 Nicotine dependence, cigarettes, uncomplicated; F32.9 Major depressive disorder, single episode, unspecified; I25.10 Atherosclerotic heart disease of native coronary artery without angina pectoris; Z88.8 Allergy status to other drugs, medicaments and biological substances; Z79.899 Other long term (current) drug therapy; Z88.6 Allergy status to analgesic agent; Z91.041 Radiographic dye allergy status; Z91.013 Allergy to seafood; Z86.73 Personal history of transient ischemic attack (TIA), and cerebral infarction without residual deficits; Z87.11 Personal history of peptic ulcer disease; Z95.5 Presence of coronary angioplasty implant and graft; Z95.0 Presence of cardiac pacemaker; Z80.9 Family history of malignant neoplasm, unspecified; Z82.3 Family history of stroke; Z82.49 Family history of ischemic heart disease and other diseases of the circulatory system
CPT/HCPCS: 36415; 76700; 80048; 80053; 80307; 83690; 85025; 94640; C9113; G0378; J2405; J3490

== ENCOUNTER → 2019-07-11 | Emergency (ER) | payer OTHER ==
[~2019-07-11] VITALS: Ht 172.7 cm; Wt 81.6 kg
[~2019-07-11] MED LIST changes: +ALBUAER3 IN; +FOLI1TAB6 PO; +IPRAAER6 NEB; +MESA400C PO; +ONDANSETRON ODT 4 MG TAB PO ONE; +PANTOPRAZOLE 40 MG TAB PO ONE
[2019-07-11 13:10] VITALS: BP 131/85
== END | disposition home or self-care (01) ==
LOC: ER 12:23
DX: R10.32 Left lower quadrant pain (principal); R10.31 Right lower quadrant pain; F29 Unspecified psychosis not due to a substance or known physiological condition; R11.2 Nausea with vomiting, unspecified; F17.210 Nicotine dependence, cigarettes, uncomplicated; I25.10 Atherosclerotic heart disease of native coronary artery without angina pectoris; E78.5 Hyperlipidemia, unspecified; Z76.5 Malingerer [conscious simulation]; Z95.0 Presence of cardiac pacemaker; Z86.73 Personal history of transient ischemic attack (TIA), and cerebral infarction without residual deficits; Z79.899 Other long term (current) drug therapy; Z88.5 Allergy status to narcotic agent; Z91.013 Allergy to seafood; Z88.8 Allergy status to other drugs, medicaments and biological substances
CPT/HCPCS: 99283; Q0162

== ENCOUNTER 2019-07-15 16:57 | Inpatient (IN) | payer OTHER ==
[~2019-07-15] VITALS: Ht 172.7 cm; Wt 56.4 kg
[~2019-07-15 16:57] MED LIST changes: -FOLI1TAB6 PO; -LEVE500T22 PO; +LEVE500T32 PO; -MESA400C PO; -ONDANSETRON ODT 4 MG TAB PO ONE; -PANTOPRAZOLE 40 MG TAB PO ONE
[2019-07-15 18:31] LABS: Basophils # (auto) 0.1 10 ^3/uL (0-0.2); Basophils % (auto) 1.9 % (0.0-2.0); Eosinophils # (auto) 0.5 10 ^3/uL (0-0.8); Eosinophils % (auto) 13.5 % (0.0-7.0); Hematocrit 42.8 % (41.0-53.0); Hemoglobin 14.3 g/dL (13.5-17.5); Lymphocytes # (auto) 1.2 10 ^3/uL (0.4-5.4); Lymphocytes % (auto) 33.9 % (10.0-50.0); Mean Corpuscular Hemoglobin 32.1 pg (28.0-32.0); Mean Corpuscular Hgb Conc. 33.3 g/dL (32.0-36.0); Mean Corpuscular Volume 96.3 fL (80.0-100.0); Monocytes # (auto) 0.4 10 ^3/uL (0-1.3); Monocytes % (auto) 10.6 % (0.0-12.0); Neutrophils # (auto) 1.4 10 ^3/uL (1.6-8.6); Neutrophils % (auto) 40.1 % (37.0-80.0); Platelet Count (auto) 153 10^3/uL (140-450); Red Blood Cells 4.45 10^6/uL (4.5-5.90); Red Cell Distribution Width 13.8 % (11.8-14.3); White Blood Cell 3.5 10^3/uL (4.4-10.8)
[2019-07-15] MEDS ORDERED: SODIUM CHLORIDE 0.9% 1,000 ML IVB ONE (18:39)
[2019-07-15] MEDS ORDERED: ONDANSETRON HCL 4 MG/2 ML VIAL IV ONE (18:45)
[2019-07-15 18:51] LABS: Albumin 3.7 g/dL (3.4-5.0); Calcium 8.2 mg/dL (8.5-10.1); Potassium 4.1 mmol/L (3.5-5.1)
[2019-07-15 18:56] LABS: Bilirubin, Total 0.3 mg/dL (0.2-1.0); Total Protein 6.9 g/dL (6.4-8.2)
[2019-07-15 18:58] LABS: Magnesium 1.9 mg/dL (1.6-2.6)
[2019-07-15] MEDS ORDERED: MEPERIDINE HCL (25 MG/ML) 1ML VIAL IV ONE (19:15)
[2019-07-15 19:19] LABS: Urine Bacteria NONE SEEN /hpf (None Seen); Urine Blood Negative /uL (Negative); Urine Mucus FEW (None Seen); Urine Specific Gravity 1.022 (1.001-1.035); Urine WBC <1 /hpf (0 - 3)
[2019-07-15] MEDS ORDERED: ACETAMINOPHEN 325 MG TAB PO PRN (22:45)
[2019-07-15] MEDS ORDERED: ONDANSETRON HCL 4 MG/2 ML VIAL IV PRN (22:45)
[2019-07-15] MEDS ORDERED: DOCUSATE SOD 100 MG CAP PO PRN (22:45)
[2019-07-15] MEDS ORDERED: TEMAZEPAM 15 MG CAP PO PRN (22:45)
[2019-07-15] MEDS: SODIUM CHLORIDE 0.9% 1,000 ML IV SCH (23:31)
[2019-07-15] MEDS: metroNIDAZOLE 500MG/100ML 100 ML IV SCH ×2 (23:31→23:37)
[2019-07-15] MEDS: HYDROcodone-ACET 5/325MG TAB PO PRN (23:33)
--- NOTE | 2019-07-15 23:40 | NUR ---
pt arrival pt arrived via wheelchair to 298B. pt transferred self from wheelchair to hospital bed. pt presents with audible inspiratory/expiratory wheezes. BP 132/89, HR , RR 22, O2SAT 98 on room air, T 97.7. pt placed on 2Lns. pt c/o of SOB, hospitalist to be paged.
[2019-07-15 23:45] VITALS: BP 132/89
--- NOTE | 2019-07-15 23:55 | NUR ---
hospitalist paged regarding SOB and audible wheezing
[2019-07-16] VITALS (7 sets, daily range): BP systolic 99–132; BP diastolic 60–89
--- NOTE | 2019-07-16 00:01 | NUR ---
hospitalist Dr. Salmon new orders received : Ventolin medneb 2.5mg/0.5ml, orders read back and verified
[2019-07-16] MEDS: ALBUTEROL SULF 2.5 MG/0.5ML(0.5%) NEB SOLN NEB PRN ×3 (00:45→18:50)
--- NOTE | 2019-07-16 01:00 | NUR ---
pt is resting comfortably in semi fowlers position with HOB at 30 degrees. respirations are even and nonlabored on 2L nc. pt does not show s/s of SOB at this time, and the patient states he "feels better now". will continue to monitor.
[2019-07-16] MEDS: LEVOTHYROXINE SODIUM 25 MCG TAB PO SCH (06:29)
--- NOTE | 2019-07-16 07:02 | NUR ---
closing note pt resting in left lateral position with eyes closed. no s/s of pain or discomfort at this time. no s/s of SOB at this time, and respirations are even and nonlabored on 2L nc. bed in low locked position, call light within reach.
[2019-07-16 07:17] LABS: Basophils # (auto) 0.1 10 ^3/uL (0-0.2); Eosinophils # (auto) 0.5 10 ^3/uL (0-0.8); Hematocrit 39.8 % (41.0-53.0); Hemoglobin 13.4 g/dL (13.5-17.5); Lymphocytes # (auto) 1.6 10 ^3/uL (0.4-5.4); Mean Corpuscular Hemoglobin 32.4 pg (28.0-32.0); Mean Corpuscular Hgb Conc. 33.5 g/dL (32.0-36.0); Mean Corpuscular Volume 96.6 fL (80.0-100.0); Monocytes # (auto) 0.3 10 ^3/uL (0-1.3); Monocytes % (auto) 8.4 % (0.0-12.0); Neutrophils % (auto) 29.4 % (37.0-80.0); Nucleated Red Blood Cells % 0.2 %; Platelet Count (auto) 141 10^3/uL (140-450); Red Blood Cells 4.12 10^6/uL (4.5-5.90); Red Cell Distribution Width 13.9 % (11.8-14.3); White Blood Cell 3.6 10^3/uL (4.4-10.8)
[2019-07-16 07:19] LABS: Eosinophils % (auto) 15.2 % (0.0-7.0)
[2019-07-16 07:36] LABS: BUN/Creatinine Ratio 4.3; Calcium 7.8 mg/dL (8.5-10.1)
--- NOTE | 2019-07-16 08:07 | NUR ---
OPENING NOTES ASSUMED CARE OF PT. ALERT AND ORIENTED X4. NO S/S OF SOB OR DISTRESS NOTED. INSTRUCTED PT TO CALL FOR ASSISTANCE. UPDATED PT ON POC. BED SET TO LOWEST/LOCKED POSITION. BEDSIDE RAILS UP X2. CALL LIGHT WITHIN REACH. PT VERBALIZED UNDERSTANDING. WILL CONTINUE TO MONITOR Q1HR AND PRN.
[2019-07-16] MEDS: HYDROcodone-ACET 5/325MG TAB PO PRN ×2 (09:45→14:54)
[2019-07-16] MEDS: levETIRAcetam 500 MG TAB PO SCH ×2 (09:46→21:46)
[2019-07-16] MEDS: MESALAMINE 400mg Delayed Release Cap PO SCH ×2 (09:47→21:47)
--- NOTE | 2019-07-16 10:08 | NUR ---
PT ASSESSED FOR PRN HHN TX. PT IS ON ROOM AIR, SPO2 94%, HR 67, RR 18. EXPIRATORY WHEEZES AUSCULTATED T/O BILAT ANTERIOR LOBES. PRN HHN TX ADMINISTERED, NO ADVERSE REACTIONS TO MEDICATION.
[2019-07-16 11:14] LABS: Amphetamine Screen, Urine NEGATIVE (NEGATIVE); Barbiturate Scree,Urine NEGATIVE (NEGATIVE); Benzodiazephine Screen, Urine NEGATIVE (NEGATIVE); Cannabinoid Screen, Urine POSITIVE (NEGATIVE); Cocaine Screen, Urine NEGATIVE (NEGATIVE); Opiate Scree,Urine NEGATIVE (NEGATIVE); Phencyclidine Screen, Urine NEGATIVE (NEGATIVE)
[2019-07-16] MEDS ORDERED: MAGNESIUM SULFATE 1GM/100ML 100 ML IV ONE (12:45)
[2019-07-16] MEDS ORDERED: cefTRIAXone 1GM/50ML D5W 50 ML IV ONE (14:30)
[2019-07-16] MEDS: metroNIDAZOLE 500MG/100ML 100 ML IV SCH ×2 (14:53→21:51)
--- NOTE | 2019-07-16 16:36 | NUR ---
VOICEMAIL LEFT FOR DR Igor DEVI REGARDING PT'S DIET. AWAITING CALL BACK.
--- NOTE | 2019-07-16 16:45 | NUR ---
SPOKE WITH DR Igor DEVI. RECEIVED DIET AND PAIN MEDICATION ORDERS. WILL PLACE AND CARRY OUT.
[2019-07-16] MEDS ORDERED: HYDROmorphone HCL 2 MG/ML VL IV ONE (17:30)
[2019-07-16] MEDS: SODIUM CHLORIDE 0.9% 1,000 ML IV SCH (17:48)
[2019-07-16] MEDS: OLANZapine 5 MG TAB PO SCH ×3 (17:50→17:59)
--- NOTE | 2019-07-16 17:59 | NUR ---
ADMINISTERED 40MG OF OLANZAPINE. PT STATED HE "ONLY TAKES 40MG AT HOME". WILL RETURN 10MG.
[2019-07-16] MEDS ORDERED: traZODone HCL 50 MG TAB PO SCH (18:00)
--- NOTE | 2019-07-16 19:20 | NUR ---
opening note pt resting in semi fowlers w/ HOB at 30 degrees. no s/s of pain or discomfort at this time. Respirations are even and nonlabored on room air. bed in low locked position, will continue to monitor.
--- NOTE | 2019-07-17 04:40 | NUR ---
pt left AMA to smoke
[2019-07-17 05:00] VITALS: BP 108/76
--- NOTE | 2019-07-17 05:08 | NUR ---
pt returned to 298a
--- NOTE | 2019-07-17 05:17 | NUR ---
lab at bedside
[2019-07-17] MEDS: metroNIDAZOLE 500MG/100ML 100 ML IV SCH (05:28)
--- NOTE | 2019-07-17 05:28 | NUR ---
pain pt c/o abdominal pain, rating of 6/10. pt will be medicated appropriately.
[2019-07-17] MEDS: HYDROcodone-ACET 5/325MG TAB PO PRN ×2 (05:35→10:51)
[2019-07-17 05:43] LABS: Basophils # (auto) 0.1 10 ^3/uL (0-0.2); Basophils % (auto) 2.4 % (0.0-2.0); Eosinophils # (auto) 0.4 10 ^3/uL (0-0.8); Eosinophils % (auto) 9.6 % (0.0-7.0); Hematocrit 41.2 % (41.0-53.0); Lymphocytes # (auto) 1.6 10 ^3/uL (0.4-5.4); Lymphocytes % (auto) 37.9 % (10.0-50.0); Mean Corpuscular Hemoglobin 32.6 pg (28.0-32.0); Mean Corpuscular Hgb Conc. 33.9 g/dL (32.0-36.0); Monocytes # (auto) 0.3 10 ^3/uL (0-1.3); Monocytes % (auto) 7.5 % (0.0-12.0); Neutrophils # (auto) 1.8 10 ^3/uL (1.6-8.6); Neutrophils % (auto) 42.6 % (37.0-80.0); Nucleated Red Blood Cells % 0.1 %; Platelet Count (auto) 140 10^3/uL (140-450); Red Blood Cells 4.29 10^6/uL (4.5-5.90); Red Cell Distribution Width 13.9 % (11.8-14.3); White Blood Cell 4.2 10^3/uL (4.4-10.8)
[2019-07-17] MEDS: LEVOTHYROXINE SODIUM 25 MCG TAB PO SCH (06:03)
[2019-07-17 06:05] LABS: BUN/Creatinine Ratio 5.5; Calcium 8.2 mg/dL (8.5-10.1); Potassium 4.2 mmol/L (3.5-5.1)
--- NOTE | 2019-07-17 07:13 | NUR ---
closing note pt resting with eyes closed. no s/s of pain or distress. respirations even and non labored on room air. bed in low locked position, call light within reach.
--- NOTE | 2019-07-17 07:30 | NUR ---
RECEIVED REPORT FROM NIGHT NURSE. PATIENT RESTING IN BED, NO DISTRESS NOTED. WILL CONTINUE TO MONITOR.
[2019-07-17 08:00] VITALS: BP 109/69
--- NOTE | 2019-07-17 08:16 | NUR ---
PT ASSESSED FOR PRN HHN TX. PT IS ON 2LNC, SPO2 96%, HR 77, RR 18. PT SLEEPING AT THIS TIME WILL NO RESPIRATORY DISTRESS. WILL CONTINUE TO MONITOR.
[2019-07-17] MEDS ORDERED: cefTRIAXone 1GM/50ML D5W 50 ML IV SCH (09:00)
[2019-07-17] MEDS: levETIRAcetam 500 MG TAB PO SCH (10:51)
[2019-07-17] MEDS: MESALAMINE 400mg Delayed Release Cap PO SCH (10:52)
[2019-07-17] MEDS: SODIUM CHLORIDE 0.9% 1,000 ML IV SCH (10:52)
--- NOTE | 2019-07-17 11:11 | NUR ---
ss consult Per ss consult advanced directive. Patient was provided with advanced directive. Addendum: 07/18/19 at 1112 by Harriet MATTSON Amended: Links added.
[2019-07-17 12:00] VITALS: BP 114/85
[2019-07-17] MEDS ORDERED: MESA400C PO (14:23)
[2019-07-17] MEDS ORDERED: FOLI1TAB6 PO (14:28)
--- NOTE | 2019-07-17 15:49 | NUR ---
Discharge instructions given as ordered. Encourage to follow up with PMD as instructed. All questions and concerns addressed. Patient verbalized understanding. Medication reconciliation form completed and copy given to patient. IV removed with catheter intact, pressure dressing applied. Patient WALKED TO LOBBY TO WAIT FOR RIDE, with all personal belongings. No distress noted at time of departure.
[2019-07-17] MEDS ORDERED: FOLIC ACID 1 MG TAB PO SCH (22:00)
== END 2019-07-17 15:31 | disposition home or self-care (01) | DRG 254 ==
LOC: ER 16:57 → TELE 16:58 → WEST WING 23:45
PROVIDERS: ADMIT Hospitalist; ATTEND Internal Medicine
DX: K63.89 Other specified diseases of intestine (principal); F20.9 Schizophrenia, unspecified; E03.9 Hypothyroidism, unspecified; E07.9 Disorder of thyroid, unspecified; E78.5 Hyperlipidemia, unspecified; F17.210 Nicotine dependence, cigarettes, uncomplicated; G40.909 Epilepsy, unspecified, not intractable, without status epilepticus; I25.10 Atherosclerotic heart disease of native coronary artery without angina pectoris; Z76.5 Malingerer [conscious simulation]; Z80.9 Family history of malignant neoplasm, unspecified; Z82.3 Family history of stroke; Z82.49 Family history of ischemic heart disease and other diseases of the circulatory system; Z86.73 Personal history of transient ischemic attack (TIA), and cerebral infarction without residual deficits; Z87.11 Personal history of peptic ulcer disease; Z95.0 Presence of cardiac pacemaker; G89.29 Other chronic pain; Z88.8 Allergy status to other drugs, medicaments and biological substances; Z91.013 Allergy to seafood; Z88.6 Allergy status to analgesic agent
CPT/HCPCS: 36415; 71045; 74176; 80048; 80053; 80307; 81001; 82150; 83690; 83735; 84443; 85025; 87081; 94640; 96361; 96374; 96375; G0378; J0696; J2405; J3490

== ENCOUNTER 2019-07-25 18:37 | Emergency (ER) | payer OTHER ==
[~2019-07-25] VITALS: Ht 172.7 cm; Wt 77.1 kg
[~2019-07-25 18:37] MED LIST changes: +FOLI1TAB6 PO; +LEVE500T22 PO; -LEVE500T32 PO; +MESA400C PO
[2019-07-25] MEDS ORDERED: SODIUM CHLORIDE 0.9% 1,000 ML IV ONE (19:15)
[2019-07-25] MEDS ORDERED: ONDANSETRON HCL 4 MG/2 ML VIAL IV ONE (19:30)
[2019-07-25 19:35] LABS: Basophils # (auto) 0.1 10 ^3/uL (0-0.2); Eosinophils # (auto) 0.2 10 ^3/uL (0-0.8); Eosinophils % (auto) 3.1 % (0.0-7.0); Hematocrit 47.5 % (41.0-53.0); Hemoglobin 16.1 g/dL (13.5-17.5); Lymphocytes # (auto) 1.4 10 ^3/uL (0.4-5.4); Mean Corpuscular Hemoglobin 32.7 pg (28.0-32.0); Mean Corpuscular Volume 96.2 fL (80.0-100.0); Monocytes # (auto) 0.7 10 ^3/uL (0-1.3); Monocytes % (auto) 10.4 % (0.0-12.0); Neutrophils # (auto) 4.3 10 ^3/uL (1.6-8.6); Neutrophils % (auto) 64.5 % (37.0-80.0); Nucleated Red Blood Cells % 0.1 %; Platelet Count (auto) 149 10^3/uL (140-450); Red Blood Cells 4.93 10^6/uL (4.5-5.90); Red Cell Distribution Width 13.6 % (11.8-14.3); White Blood Cell 6.7 10^3/uL (4.4-10.8)
[2019-07-25 19:48] LABS: Alanine Aminotransferase 15 U/L (16-61); Anion Gap 6 (5-15); Aspartate Aminotransferase 10 U/L (15-37); BUN/Creatinine Ratio 6.3; Blood Urea Nitrogen 5 mg/dL (7-18); Calcium 9.3 mg/dL (8.5-10.1); Carbon Dioxide 26 mmol/L (21-32); Chloride 106 mmol/L (98-107); GFR African American 149 mL/min; GFR Non-African American 123 mL/min; Glucose 103 mg/dL (74-106); Potassium 4.1 mmol/L (3.5-5.1); Sodium 138 mmol/L (136-145)
[2019-07-25 19:54] LABS: Alkaline Phosphatase 74 U/L (45-117); Bilirubin, Total 0.6 mg/dL (0.2-1.0); Total Protein 7.7 g/dL (6.4-8.2)
[2019-07-25 20:18] VITALS: BP 121/80
[2019-07-25] MEDS ORDERED: ALUM & MAG HYDROX-SIMETH LIQ(MAALOX) 30 ML PO ONE (20:30)
== END 2019-07-25 20:28 | disposition home or self-care (01) ==
LOC: ER 18:37
DX: R10.13 Epigastric pain (principal); R11.2 Nausea with vomiting, unspecified; F17.210 Nicotine dependence, cigarettes, uncomplicated; E78.5 Hyperlipidemia, unspecified; Z76.5 Malingerer [conscious simulation]; Z86.73 Personal history of transient ischemic attack (TIA), and cerebral infarction without residual deficits; Z88.6 Allergy status to analgesic agent; Z88.8 Allergy status to other drugs, medicaments and biological substances
CPT/HCPCS: 36415; 71045; 80053; 83605; 83880; 84484; 85025; 93005; 96361; 96374; 99285; J2405; J7030

== ENCOUNTER 2019-08-07 13:23 | Emergency (ER) | payer OTHER ==
[~2019-08-07] VITALS: Ht 172.7 cm; Wt 77.1 kg
[2019-08-07 13:27] VITALS: BP 138/79
[2019-08-07 13:43] LABS: Urine WBC None Seen /hpf (0 - 3)
[2019-08-07 13:50] LABS: Basophils # (auto) 0.1 10 ^3/uL (0-0.2); Basophils % (auto) 1.5 % (0.0-2.0); Eosinophils # (auto) 0.3 10 ^3/uL (0-0.8); Eosinophils % (auto) 7.5 % (0.0-7.0); Hematocrit 45.6 % (41.0-53.0); Hemoglobin 15.4 g/dL (13.5-17.5); Lymphocytes # (auto) 1.8 10 ^3/uL (0.4-5.4); Lymphocytes % (auto) 40.5 % (10.0-50.0); Mean Corpuscular Hemoglobin 32.5 pg (28.0-32.0); Mean Corpuscular Hgb Conc. 33.7 g/dL (32.0-36.0); Mean Corpuscular Volume 96.5 fL (80.0-100.0); Monocytes # (auto) 0.3 10 ^3/uL (0-1.3); Monocytes % (auto) 7.7 % (0.0-12.0); Neutrophils # (auto) 1.9 10 ^3/uL (1.6-8.6); Neutrophils % (auto) 42.8 % (37.0-80.0); Nucleated Red Blood Cells % 0.1 %; Platelet Count (auto) 165 10^3/uL (140-450); Red Blood Cells 4.72 10^6/uL (4.5-5.90); Red Cell Distribution Width 13.6 % (11.8-14.3); White Blood Cell 4.5 10^3/uL (4.4-10.8)
[2019-08-07 13:52] LABS: Urine Bacteria NONE SEEN /hpf (None Seen); Urine Blood Negative /uL (Negative); Urine Specific Gravity 1.002 (1.001-1.035)
[2019-08-07 14:06] LABS: Albumin 3.5 g/dL (3.4-5.0); Calcium 8.3 mg/dL (8.5-10.1)
[2019-08-07 14:10] LABS: BUN/Creatinine Ratio 12.4; Bilirubin, Total 0.3 mg/dL (0.2-1.0); Total Protein 6.9 g/dL (6.4-8.2)
[2019-08-07] MEDS ORDERED: ONDANSETRON ODT 4 MG TAB PO ONE (14:30)
== END 2019-08-07 14:44 | disposition home or self-care (01) ==
LOC: ER 13:23
DX: R10.31 Right lower quadrant pain (principal); R11.2 Nausea with vomiting, unspecified; F17.210 Nicotine dependence, cigarettes, uncomplicated; E78.5 Hyperlipidemia, unspecified; Z86.73 Personal history of transient ischemic attack (TIA), and cerebral infarction without residual deficits
CPT/HCPCS: 36415; 80053; 81001; 82962; 83690; 85025; 99283; Q0162

== ENCOUNTER 2019-08-21 14:07 | Emergency (ER) | payer OTHER ==
[~2019-08-21] VITALS: Ht 172.7 cm; Wt 77.1 kg
[2019-08-21 14:28] VITALS: BP 113/79
[2019-08-21] MEDS ORDERED: ONDANSETRON ODT 4 MG TAB PO ONE (14:30)
[2019-08-21] MEDS ORDERED: HYDROcodone-ACET 5/325MG TAB PO ONE (14:30)
== END 2019-08-21 14:56 | disposition home or self-care (01) ==
LOC: ER 14:07
DX: K52.9 Noninfective gastroenteritis and colitis, unspecified (principal); Z88.8 Allergy status to other drugs, medicaments and biological substances; I25.10 Atherosclerotic heart disease of native coronary artery without angina pectoris; E78.5 Hyperlipidemia, unspecified; E07.9 Disorder of thyroid, unspecified; F17.210 Nicotine dependence, cigarettes, uncomplicated
CPT/HCPCS: 99283; Q0162

== ENCOUNTER 2019-08-28 18:00 | Emergency (ER) | payer OTHER ==
[~2019-08-28] VITALS: Ht 172.7 cm; Wt 77.1 kg
[2019-08-28 19:18] LABS: Basophils # (auto) 0 10 ^3/uL (0-0.2); Basophils % (auto) 0.8 % (0.0-2.0); Eosinophils # (auto) 0.4 10 ^3/uL (0-0.8); Eosinophils % (auto) 6.7 % (0.0-7.0); Hematocrit 46.4 % (41.0-53.0); Hemoglobin 15.2 g/dL (13.5-17.5); Lymphocytes # (auto) 1.5 10 ^3/uL (0.4-5.4); Lymphocytes % (auto) 26.2 % (10.0-50.0); Mean Corpuscular Hgb Conc. 32.9 g/dL (32.0-36.0); Mean Corpuscular Volume 97.3 fL (80.0-100.0); Monocytes # (auto) 0.4 10 ^3/uL (0-1.3); Monocytes % (auto) 6.3 % (0.0-12.0); Neutrophils # (auto) 3.5 10 ^3/uL (1.6-8.6); Nucleated Red Blood Cells % 0.1 %; Platelet Count (auto) 171 10^3/uL (140-450); Red Blood Cells 4.76 10^6/uL (4.5-5.90); Red Cell Distribution Width 13.6 % (11.8-14.3); White Blood Cell 5.8 10^3/uL (4.4-10.8)
[2019-08-28 19:31] LABS: Calcium 9.3 mg/dL (8.5-10.1); Magnesium 1.9 mg/dL (1.6-2.6); Potassium 4.3 mmol/L (3.5-5.1)
[2019-08-28 19:32] LABS: INR 1.14 (0.9-1.15); Partial Thromboplastin Time 27.7 sec (23.64-32.05)
[2019-08-28 19:35] LABS: BUN/Creatinine Ratio 7.5; Bilirubin, Total 0.4 mg/dL (0.2-1.0); Total Protein 7.3 g/dL (6.4-8.2)
[2019-08-28 19:38] LABS: Urine Bacteria NONE SEEN /hpf (None Seen); Urine Blood Negative /uL (Negative); Urine Mucus FEW (None Seen); Urine Specific Gravity 1.025 (1.001-1.035); Urine WBC <1 /hpf (0 - 3)
[2019-08-28] MEDS ORDERED: IOHEXOL 300 MG/ML 100ML BOTTLE IJ ONE (20:50)
[2019-08-28] MEDS ORDERED: diphenhdrAMINE HCL 50 MG/1 ML VL IV ONE (23:30)
[2019-08-28] MEDS ORDERED: methylPREDNISolone SOD SUCC 125 MG/2 ML VL IV ONE (23:30)
[2019-08-28] MEDS ORDERED: ONDANSETRON HCL 4 MG/2 ML VIAL IV ONE (23:45)
[2019-08-29 01:45] VITALS: BP 123/52
== END 2019-08-29 01:50 | disposition home or self-care (01) ==
LOC: ER 18:00
DX: R10.84 Generalized abdominal pain (principal); R11.2 Nausea with vomiting, unspecified; F19.20 Other psychoactive substance dependence, uncomplicated; F11.20 Opioid dependence, uncomplicated; F20.9 Schizophrenia, unspecified; F17.210 Nicotine dependence, cigarettes, uncomplicated; I25.10 Atherosclerotic heart disease of native coronary artery without angina pectoris; E78.5 Hyperlipidemia, unspecified; F41.9 Anxiety disorder, unspecified; F32.9 Major depressive disorder, single episode, unspecified; Z86.711 Personal history of pulmonary embolism; Z87.11 Personal history of peptic ulcer disease; Z86.73 Personal history of transient ischemic attack (TIA), and cerebral infarction without residual deficits; Z98.61 Coronary angioplasty status; Z79.899 Other long term (current) drug therapy; Z91.013 Allergy to seafood; Z88.8 Allergy status to other drugs, medicaments and biological substances; Z88.5 Allergy status to narcotic agent
CPT/HCPCS: 36415; 74177; 80053; 81001; 82150; 83605; 83690; 83735; 85025; 85610; 85730; 96374; 96375; 99285; J1200; J2405; J2930; Q9967

== ENCOUNTER 2019-10-27 01:55 | Emergency (ER) | payer OTHER ==
[~2019-10-27] VITALS: Ht 172.7 cm; Wt 81.6 kg
[~2019-10-27 01:55] MED LIST changes: -LEVE500T22 PO; +LEVE500T32 PO
[2019-10-27 02:18] VITALS: BP 135/86
[2019-10-27 04:29] LABS: Urine Bacteria NONE SEEN /hpf (None Seen); Urine Blood 3+ /uL (Negative); Urine Specific Gravity 1.017 (1.001-1.035); Urine WBC 5 /hpf (0 - 3)
[2019-10-27 04:38] LABS: Alcohol, Urine < 3.0 mg/dL (0-10); Amphetamine Screen, Urine NEGATIVE (NEGATIVE); Barbiturate Scree,Urine NEGATIVE (NEGATIVE); Benzodiazephine Screen, Urine NEGATIVE (NEGATIVE); Cannabinoid Screen, Urine POSITIVE (NEGATIVE); Cocaine Screen, Urine NEGATIVE (NEGATIVE); Opiate Scree,Urine NEGATIVE (NEGATIVE); Phencyclidine Screen, Urine NEGATIVE (NEGATIVE)
[2019-10-27] MEDS ORDERED: HYDROcodone-ACET 10/325MG TAB PO ONE (05:15)
== END 2019-10-27 06:06 | disposition home or self-care (01) ==
LOC: EDBD 01:55 → ER 01:58
DX: N39.0 Urinary tract infection, site not specified (principal); Z88.6 Allergy status to analgesic agent; Z88.8 Allergy status to other drugs, medicaments and biological substances
CPT/HCPCS: 80307; 81001

== ENCOUNTER 2019-11-01 17:59 | Emergency (ER) | payer OTHER ==
[~2019-11-01] VITALS: Ht 172.7 cm; Wt 81.6 kg
[2019-11-01 19:20] LABS: Urine Bacteria NONE SEEN /hpf (None Seen); Urine Blood Negative /uL (Negative); Urine Specific Gravity 1.004 (1.001-1.035); Urine WBC <1 /hpf (0 - 3)
[2019-11-01 22:51] LABS: Basophils # (auto) 0.1 10 ^3/uL (0-0.2); Basophils % (auto) 1.2 % (0.0-2.0); Eosinophils # (auto) 0.1 10 ^3/uL (0-0.8); Hematocrit 44.1 % (41.0-53.0); Hemoglobin 14.5 g/dL (13.5-17.5); Lymphocytes # (auto) 1.6 10 ^3/uL (0.4-5.4); Lymphocytes % (auto) 33.5 % (10.0-50.0); Mean Corpuscular Volume 97.1 fL (80.0-100.0); Monocytes # (auto) 0.3 10 ^3/uL (0-1.3); Neutrophils # (auto) 2.7 10 ^3/uL (1.6-8.6); Neutrophils % (auto) 56.3 % (37.0-80.0); Nucleated Red Blood Cells % 0.3 %; Platelet Count (auto) 157 10^3/uL (140-450); Red Blood Cells 4.54 10^6/uL (4.5-5.90); Red Cell Distribution Width 13.7 % (11.8-14.3); White Blood Cell 4.9 10^3/uL (4.4-10.8)
[2019-11-01 23:15] LABS: Calcium 8.8 mg/dL (8.5-10.1); Potassium 4.1 mmol/L (3.5-5.1)
[2019-11-01 23:18] LABS: BUN/Creatinine Ratio 4.4
[2019-11-01 23:29] LABS: Bilirubin, Total 0.3 mg/dL (0.2-1.0); Total Protein 7.4 g/dL (6.4-8.2)
[2019-11-02] MEDS ORDERED: ONDANSETRON HCL 4 MG/2 ML VIAL IV ONE (00:15)
[2019-11-02] MEDS ORDERED: HYDROcodone-ACET 10/325MG TAB PO ONE (00:15)
[2019-11-02] MEDS ORDERED: PANTOPRAZOLE 40 MG/10 ML VIAL INJ IV ONE (00:15)
[2019-11-02] MEDS ORDERED: SODIUM CHLORIDE 0.9% 1,000 ML IV ONE (00:15)
[2019-11-02] MEDS ORDERED: metroNIDAZOLE 500MG/100ML 100 ML IV ONE (01:00)
[2019-11-02] MEDS ORDERED: CIPROFLOXACIN HCL 500 MG TAB PO ONE (01:00)
[2019-11-02] MEDS ORDERED: MORPHINE SULF INJ 2 MG/ML SYRINGE 1ML IV ONE (01:00)
[2019-11-02 01:06] LABS: Amylase 104 U/L (25-115); Lipase 88 U/L (73-393)
[2019-11-02 01:49] LABS: Alcohol, Urine < 3.0 mg/dL (0-10); Amphetamine Screen, Urine NEGATIVE (NEGATIVE); Barbiturate Scree,Urine NEGATIVE (NEGATIVE); Benzodiazephine Screen, Urine NEGATIVE (NEGATIVE); Cannabinoid Screen, Urine POSITIVE (NEGATIVE); Cocaine Screen, Urine NEGATIVE (NEGATIVE); Opiate Scree,Urine NEGATIVE (NEGATIVE); Phencyclidine Screen, Urine NEGATIVE (NEGATIVE)
[2019-11-02 03:10] VITALS: BP 116/72
== END 2019-11-02 04:43 | disposition home or self-care (01) ==
LOC: ER 17:59
DX: K52.9 Noninfective gastroenteritis and colitis, unspecified (principal); K59.00 Constipation, unspecified; F12.10 Cannabis abuse, uncomplicated; K40.90 Unilateral inguinal hernia, without obstruction or gangrene, not specified as recurrent; F17.210 Nicotine dependence, cigarettes, uncomplicated
CPT/HCPCS: 36415; 74176; 80053; 80307; 81001; 82150; 83690; 85025; 96365; 96375; 99284; C9113; J2270; J2405; J3490; J7030

== ENCOUNTER → 2019-11-06 | Emergency (ER) | payer OTHER ==
[~2019-11-06] VITALS: Ht 172.7 cm; Wt 81.6 kg
[~2019-11-06] MED LIST changes: +HYDROcodone-ACET 5/325MG TAB PO ONE
[2019-11-06 22:11] LABS: Urine WBC None Seen /hpf (0 - 3)
[2019-11-06 22:31] LABS: Basophils # (auto) 0.1 10 ^3/uL (0-0.2); Basophils % (auto) 1.1 % (0.0-2.0); Eosinophils # (auto) 0.1 10 ^3/uL (0-0.8); Hematocrit 41.7 % (41.0-53.0); Hemoglobin 14.1 g/dL (13.5-17.5); Lymphocytes % (auto) 33.2 % (10.0-50.0); Mean Corpuscular Hemoglobin 32.8 pg (28.0-32.0); Mean Corpuscular Hgb Conc. 33.7 g/dL (32.0-36.0); Mean Corpuscular Volume 97.2 fL (80.0-100.0); Monocytes # (auto) 0.5 10 ^3/uL (0-1.3); Monocytes % (auto) 7.7 % (0.0-12.0); Neutrophils # (auto) 3.4 10 ^3/uL (1.6-8.6); Nucleated Red Blood Cells % 0.1 %; Platelet Count (auto) 142 10^3/uL (140-450); Red Blood Cells 4.29 10^6/uL (4.5-5.90); Red Cell Distribution Width 13.4 % (11.8-14.3); White Blood Cell 6.1 10^3/uL (4.4-10.8)
[2019-11-06 22:32] LABS: Urine Bacteria NONE SEEN /hpf (None Seen); Urine Blood Negative /uL (Negative); Urine Specific Gravity 1.002 (1.001-1.035)
[2019-11-06 22:42] LABS: Potassium 3.3 mmol/L (3.5-5.1)
[2019-11-06 22:52] LABS: Albumin 3.7 g/dL (3.4-5.0); Bilirubin, Total 0.3 mg/dL (0.2-1.0); Total Protein 6.7 g/dL (6.4-8.2)
[2019-11-07 02:28] VITALS: BP 122/72
== END | disposition left against medical advice (07) ==
LOC: ER 20:17
DX: R10.9 Unspecified abdominal pain (principal); R11.2 Nausea with vomiting, unspecified; Z53.21 Procedure and treatment not carried out due to patient leaving prior to being seen by health care provider
CPT/HCPCS: 36415; 80053; 81001; 85025

== ENCOUNTER 2019-11-14 18:26 | Emergency (ER) | payer OTHER ==
[~2019-11-14] VITALS: Ht 172.7 cm; Wt 81.6 kg
[~2019-11-14 18:26] MED LIST changes: -HYDROcodone-ACET 5/325MG TAB PO ONE
[2019-11-14 21:41] LABS: Basophils # (auto) 0.1 10 ^3/uL (0-0.2); Eosinophils # (auto) 0.3 10 ^3/uL (0-0.8); Eosinophils % (auto) 3.9 % (0.0-7.0); Hematocrit 43.9 % (41.0-53.0); Lymphocytes # (auto) 1.9 10 ^3/uL (0.4-5.4); Lymphocytes % (auto) 26.2 % (10.0-50.0); Mean Corpuscular Hemoglobin 32.4 pg (28.0-32.0); Mean Corpuscular Hgb Conc. 34.2 g/dL (32.0-36.0); Monocytes # (auto) 0.6 10 ^3/uL (0-1.3); Monocytes % (auto) 8.4 % (0.0-12.0); Neutrophils # (auto) 4.3 10 ^3/uL (1.6-8.6); Neutrophils % (auto) 60.5 % (37.0-80.0); Platelet Count (auto) 137 10^3/uL (140-450); Red Blood Cells 4.62 10^6/uL (4.5-5.90); Red Cell Distribution Width 13.6 % (11.8-14.3); White Blood Cell 7.1 10^3/uL (4.4-10.8)
[2019-11-14 21:53] LABS: Albumin 3.9 g/dL (3.4-5.0); Anion Gap 8 (5-15); Blood Urea Nitrogen 13 mg/dL (7-18); Calcium 8.2 mg/dL (8.5-10.1); Carbon Dioxide 23 mmol/L (21-32); Chloride 107 mmol/L (98-107); Glucose 86 mg/dL (74-106); Potassium 4.6 mmol/L (3.5-5.1); Sodium 138 mmol/L (136-145)
[2019-11-14 21:57] LABS: Alanine Aminotransferase 19 U/L (16-61); Alkaline Phosphatase 52 U/L (45-117); Aspartate Aminotransferase 20 U/L (15-37); BUN/Creatinine Ratio 13.3; Bilirubin, Total 0.3 mg/dL (0.2-1.0); GFR African American 116 mL/min; GFR Non-African American 96 mL/min
[2019-11-14 22:52] VITALS: BP 135/87
== END 2019-11-14 22:58 | disposition home or self-care (01) ==
LOC: ER 18:26
DX: K52.9 Noninfective gastroenteritis and colitis, unspecified (principal); F17.210 Nicotine dependence, cigarettes, uncomplicated; I25.10 Atherosclerotic heart disease of native coronary artery without angina pectoris; E78.5 Hyperlipidemia, unspecified; Z79.899 Other long term (current) drug therapy; Z88.8 Allergy status to other drugs, medicaments and biological substances; Z91.013 Allergy to seafood; Z91.041 Radiographic dye allergy status
CPT/HCPCS: 36415; 71045; 74176; 80053; 83880; 84484; 85025; 93005

== ENCOUNTER 2022-05-01 08:03 | Emergency (ER) | payer MEDICAID, OTHER ==
[~2022-05-01] VITALS: Ht 162.6 cm; Wt 81.8 kg
[~2022-05-01 08:03] MED LIST changes: +DIVA500T2 PO; -DIVA500T53 PO; +OLAN20TA PO; -OLAN20TA13 PO
[2022-05-01 08:06] VITALS: BP 102/71
[2022-05-01] MEDS ORDERED: ASPirin 81 mg TAB PO ONE (08:30)
[2022-05-01 08:35] LABS: Basophils # (auto) 0 10 ^3/uL (0-0.2); Basophils % (auto) 1.1 % (0.0-2.0); Eosinophils # (auto) 0.2 10 ^3/uL (0-0.8); Eosinophils % (auto) 4.7 % (0.0-7.0); Hematocrit 42.8 % (41.0-53.0); Hemoglobin 14.1 g/dL (13.5-17.5); Lymphocytes # (auto) 1.2 10 ^3/uL (0.4-5.4); Lymphocytes % (auto) 27.3 % (10.0-50.0); Mean Corpuscular Hemoglobin 29.9 pg (28.0-32.0); Mean Corpuscular Hgb Conc. 32.8 g/dL (32.0-36.0); Mean Corpuscular Volume 90.9 fL (80.0-100.0); Monocytes # (auto) 0.3 10 ^3/uL (0-1.3); Monocytes % (auto) 6.5 % (0.0-12.0); Neutrophils # (auto) 2.6 10 ^3/uL (1.6-8.6); Neutrophils % (auto) 60.4 % (37.0-80.0); Red Blood Cells 4.71 10^6/uL (4.5-5.90); Red Cell Distribution Width 14.8 % (11.8-14.3); White Blood Cell 4.3 10^3/uL (4.4-10.8)
[2022-05-01 08:42] LABS: Urine WBC None Seen /hpf (0 - 3)
[2022-05-01 08:51] LABS: INR 1.09 (0.9-1.15); Partial Thromboplastin Time 29.8 sec (24.6-33.4)
[2022-05-01 08:57] LABS: Albumin 3.4 g/dL (3.4-5.0); Calcium 8.5 mg/dL (8.5-10.1); Potassium 4.2 mmol/L (3.5-5.1)
[2022-05-01 09:01] LABS: BUN/Creatinine Ratio 12.7; Bilirubin, Total 0.2 mg/dL (0.2-1.0); Total Protein 6.3 g/dL (6.4-8.2)
[2022-05-01 09:13] LABS: Urine Amorphous Crystal MOD /hpf (None Seen); Urine Bacteria NONE SEEN /hpf (None Seen); Urine Blood Negative /uL (Negative); Urine Mucus FEW (None Seen); Urine Specific Gravity 1.023 (1.001-1.035)
[2022-05-01 09:16] LABS: Alcohol, Urine < 3.0 mg/dL (0-10); Amphetamine Screen, Urine NEGATIVE (NEGATIVE); Barbiturate Scree,Urine NEGATIVE (NEGATIVE); Benzodiazephine Screen, Urine NEGATIVE (NEGATIVE); Cannabinoid Screen, Urine POSITIVE (NEGATIVE); Cocaine Screen, Urine NEGATIVE (NEGATIVE); Phencyclidine Screen, Urine NEGATIVE (NEGATIVE)
[2022-05-01 09:24] LABS: Opiate Scree,Urine NEGATIVE (NEGATIVE)
== END 2022-05-01 09:53 | disposition left against medical advice (07) ==
LOC: ER 08:06
DX: R07.89 Other chest pain (principal); F17.210 Nicotine dependence, cigarettes, uncomplicated; F12.10 Cannabis abuse, uncomplicated; E78.5 Hyperlipidemia, unspecified; Z86.73 Personal history of transient ischemic attack (TIA), and cerebral infarction without residual deficits; Z88.6 Allergy status to analgesic agent; Z79.899 Other long term (current) drug therapy
CPT/HCPCS: 36415; 80053; 80307; 81001; 83735; 83880; 84484; 85025; 85610; 85730; 93005